=== PATIENT | female | born 1970 | race Hispanic/Latino ===

== ENCOUNTER 2023-12-17 18:18 | Observation (INO) | payer SELFPAY ==
[2023-12-17] VITALS (11 sets, daily range): BP systolic 99–118; BP diastolic 55–61; PULSE 69–90; RESP 18; TEMP 36.9; O2SAT 92–99; BMI 28.8
[2023-12-17] MEDS: ONDANSETRON 4 MG/2 ML INJ IV (18:48)
[2023-12-17 19:08] LABS: Add Manual Diff / Slide Review NO; Basophils Absolute Auto 100 /uL (0-100); Basophils Percent Auto 0.8 % (0-2); Eosinophils Absolute Auto 0 /uL (0-450); Hematocrit 36.8 % (36-46); Hemoglobin 12.4 g/dL (12.0-16.0); Lymphocytes Absolute Auto 1600 /uL (1100-4500); Lymphocytes Percent Auto 12.7 % (25-40); Mean Corpuscular HGB Conc 33.7 % (30-36); Mean Corpuscular Hemoglobin 29.6 PG (26-34); Monocytes Absolute Auto 800 /uL (0-900); Monocytes Percent Auto 6.5 % (3-14); Neutrophils Absolute Auto 9800 /uL (1500-7000); Platelet Count 376 X10^3/uL (150-400); Red Blood Cell Count 4.18 X10^6/uL (4.0-5.2); Red Cell Distribution Width 13.9 % (11.6-14.8); White Blood Cell Count 12.2 X10^3/uL (4.5-11.0)
[2023-12-17 19:19] LABS: Alanine Aminotransferase 18 IU/L (<35); Albumin 4.3 g/dL (3.5-5.0); Albumin Globulin Ratio 1.3 (1.0-2.8); Alkaline Phosphatase 89 U/L (38-126); Aspartate Aminotransferase 23 IU/L (14-36); BUN Creatinine Ratio 17.5 (6-22); Blood Urea Nitrogen 10 mg/dL (7-17); Calcium 9.1 mg/dL (8.4-10.2); Carbon Dioxide 27 mmol/L (22-32); Chloride 106 mmol/L (98-107); Estimated Glomerular Filt Rate > 60 mL/min (>60); Globulin 3.2 g/dL (1.7-4.1); Glucose 122 mg/dL (70-100); HEMOLYSIS < 15 (0-50); Lipase 72 U/L (23-300); Potassium 4.2 mmol/L (3.4-5.1); Sodium 138 mmol/L (137-145); Total Protein 7.5 g/dL (6.3-8.2)
--- NOTE | 2023-12-17 21:03 | ED_ITS ---
HPI - General Adult General Chief complaint: Abdominal Pain Stated complaint: abd pain, diarrhea, vomiting Time Seen by Provider: 12/17/23 20:39 Source: patient Mode of arrival: Ambulatory Limitations: language barrier History of Present Illness HPI narrative: Patient is a 53-year-old female who is Burundian-speaking only. The translation line was used for interpretation. She is here for evaluation of right upper quadrant/right-sided abdominal pain and vomiting and diarrhea that started last evening. Has been consistent since then. No recent travel. No recent antibiotics. No prior abdominal surgeries. After further discussion with the patient turns out she had similar symptoms 2 times in the past. The 1st time was approximately 1 month ago in the 2nd time was approximately 2 weeks ago but today symptoms have been more persistent and more painful. She has not tried anything for the symptoms prior to arrival. She has tried Protonix after 1 of her prior episodes which did not improve any of her symptoms. She states the symptoms are not worse or better with urination or bowel movements. Related Data Home Medications Medication Instructions Recorded Confirmed famotidine 40 mg tablet 40 mg PO ONCE PM PRN heartburn 12/18/23 12/18/23 pantoprazole 40 mg tablet,delayed 40 mg PO QAM 12/18/23 12/18/23 release Allergies Allergy/AdvReac Type Severity Reaction Status Date / Time No Known Drug Allergies Allergy Verified 12/17/23 18:29 Review of Systems Constitutional Constitutional: Reports system reviewed and no additional complaints, except as documented Gastrointestinal Gastrointestinal: Reports system reviewed and no additional complaints, except as documented Genitourinary Genitourinary: Reports system reviewed and no additional complaints, except as documented Musculoskeletal Musculoskeletal: Reports system reviewed and no additional complaints, except as documented Integumentary/Breasts Skin/Breast: Reports system reviewed and no additional complaints, except as documented Hematologic/Lymphatic On Anticoagulants: No Patient History Social History household members: family Smoking Status: Never smoker alcohol intake: never Smoking Status: Never smoker Substance Use Type: does not use Exam Initial Vital Signs Initial Vital Signs: Vital Signs Temperature 98.5 F 12/17/23 18:29 Pulse Rate 84 12/17/23 18:29 Respiratory Rate 18 12/17/23 18:29 Blood Pressure 118/61 12/17/23 18:29 Pulse Oximetry 96 12/17/23 18:29 Oxygen Delivery Method Room Air 12/17/23 18:29 Const General: cooperative, comfortable and No ill appearing HENMN Head: normal to inspection and normocephalic Resp Effort & Inspection: normal respiratory effort Auscultation: clear to auscultation bilaterally Cardio Rate: regular rate Rhythm: regular rhythm GI Inspection: normal to inspection and non-distended Palpation: soft, No firm, No guarding and tender Skin General: no rashes or lesions noted Neuro General: patient alert, patient awake and moves all extremities Course Orders Ordered: ED Orders 12/17/23 18:44 Complete Blood Count AUTO DIFF Stat Comprehensive Metabolic Panel Stat Lipase Stat 12/17/23 20:59 Urine Microscopic Stat 12/17/23 21:03 CT abdomen pelvis w con Stat 12/17/23 22:59 Consult to General Surgery Stat Acetaminophen (Acetaminophen 325 Mg Tablet) 650 mg PO Q6H [facility] Last Admin: 12/17/23 23:35 Dose: 650 mg Documented By: PABLO Sodium Chloride (Normal Saline 0.45%) 1,000 mls @ 100 mls/hr IV CONT JOSEFA Last Admin: 12/17/23 23:37 Dose: 100 mls/hr Documented By: PABLO Piperacillin Sod/Tazobactam (Sod 3.375 gm/ Sodium Chloride) 100 mls @ 25 mls/hr IV Q8H JOSEFA Ibuprofen (Ibuprofen 600 Mg Tablet) 600 mg PO Q6H JOSEFA Naloxone HCl (Naloxone 0.4 Mg/Ml Vial) 0.2 mg IV Q2MIN PRN PRN Reason: Opiate Reversal Ondansetron HCl (Ondansetron 4 Mg Odt) 4 mg PO NOW PRN PRN Reason: Nausea And Vomiting Ondansetron HCl (Ondansetron 4 Mg/2 Ml Inj) 4 mg IV NOW PRN PRN Reason: Nausea And Vomiting Last Admin: 12/17/23 18:48 Dose: 4 mg Documented By: BETSY Ondansetron HCl (Ondansetron 4 Mg/2 Ml Inj) 4 mg IV Q8HR PRN PRN Reason: Nausea And Vomiting Oxycodone HCl (Oxycodone Ir 5 Mg Tablet) 5 mg PO Q3H PRN PRN Reason: Pain, Moderate (4-6) Last Admin: 12/17/23 23:35 Dose: 5 mg Documented By: PABLO Oxycodone HCl (Oxycodone Ir 10 Mg Tablet) 10 mg PO Q3H PRN PRN Reason: Pain, Severe (7-10) Discontinued Medications Piperacillin Sod/Tazobactam (Sod 4.5 gm/ Sodium Chloride) 100 mls @ 200 mls/hr IV NOW ONE Stop: 12/17/23 23:00 Last Infusion: 12/18/23 00:14 Dose: Infused Documented By: Admin: 12/17/23 23:41 Dose: 200 mls/hr Documented By: PABLO Morphine Sulfate (Morphine 4 Mg/Ml Inj) 4 mg IV NOW ONE Stop: 12/17/23 21:04 Last Admin: 12/17/23 21:23 Dose: 4 mg Documented By: PABLO Morphine Sulfate (Morphine 4 Mg/Ml Inj) 4 mg IV NOW ONE Stop: 12/17/23 23:12 Last Admin: 12/17/23 23:49 Dose: 4 mg Documented By: PABLO Vital Signs Vital signs: Vital Signs - 8 hr 12/17/23 18:29 12/17/23 20:24 12/17/23 20:30 Temperature 98.5 F Pulse Rate 84 69 Respiratory Rate 18 Blood Pressure 118/61 109/57 L Pulse Oximetry 96 Oxygen Delivery Method Room Air 12/17/23 20:30 12/17/23 21:03 12/17/23 21:26 Temperature Pulse Rate 76 90 90 Respiratory Rate Blood Pressure Pulse Oximetry 99 98 98 Oxygen Delivery Method 12/17/23 21:26 12/17/23 21:30 12/17/23 22:00 Temperature Pulse Rate 85 81 Respiratory Rate Blood Pressure 108/55 L Pulse Oximetry 92 95 Oxygen Delivery Method 12/17/23 22:30 12/17/23 23:00 Temperature Pulse Rate 78 83 Respiratory Rate Blood Pressure Pulse Oximetry 97 95 Oxygen Delivery Method Medical Decision Making Lab Data Lab results reviewed: Yes I reviewed the patient's lab results. 12/17/23 18:44 12/17/23 18:44 Labs: Lab Results 12/17/23 12/17/23 Range/Units 18:44 20:59 WBC 12.2 H (4.5-11.0) X10^3/uL RBC 4.18 (4.0-5.2) X10^6/uL Hgb 12.4 (12.0-16.0) g/dL Hct 36.8 (36-46) % MCV 88.0 (80-100) fL MCH 29.6 (26-34) PG MCHC 33.7 (30-36) % RDW 13.9 (11.6-14.8) % Plt Count 376 (150-400) X10^3/uL Neut % (Auto) 80.0 H (50-75) % Lymph % (Auto) 12.7 L (25-40) % Victoria % (Auto) 6.5 (3-14) % Eos % (Auto) 0.0 L (2-4) % Baso % (Auto) 0.8 (0-2) % Neut # (Auto) 9800 H (3693-9124) /uL Lymph # (Auto) 1600 (5191-6085) /uL Victoria # (Auto) 800 (0-900) /uL Eos # (Auto) 0 (0-450) /uL Baso # (Auto) 100 (0-100) /uL Sodium 138 (137-145) mmol/L Potassium 4.2 (3.4-5.1) mmol/L Chloride 106 (98-107) mmol/L Carbon Dioxide 27 (22-32) mmol/L BUN 10 (7-17) mg/dL Creatinine 0.57 (0.52-1.04) mg/dL Estimated GFR > 60 (>60) mL/min BUN/Creatinine Ratio 17.5 (6-22) Glucose 122 H (70-100) mg/dL Calcium 9.1 (8.4-10.2) mg/dL Total Bilirubin 1.0 (0.2-1.3) mg/dL AST 23 (14-36) IU/L ALT 18 (<35) IU/L Alkaline Phosphatase 89 (38-126) U/L Total Protein 7.5 (6.3-8.2) g/dL Albumin 4.3 (3.5-5.0) g/dL Globulin 3.2 (1.7-4.1) g/dL Albumin/Globulin Ratio 1.3 (1.0-2.8) Lipase 72 (23-300) U/L Urine RBC 0-1/hpf (0-5/HPF) Urine WBC None seen (0-5/HPF) Ur Squamous Epith Cells 5-10 /hpf H (0-5/HPF) Amorphous Sediment 1+ Urine Bacteria Few (2-10) H (None) Urine Mucus 1+ H (Negative) Ur Culture Indicated? Cult not indicated Vol Urine Centrifuged 10ml (spun) Urine Dip Bedside Urine Glucose Negative Bedside Urine Bilirubin - Negative Bedside Urine Ketone - Negative Urine Specific Clifton 1.015 Bedside Urine Occult Blood +/- Bedside Urine pH 7.5 Bedside Urine Protein - Negative Bedside Urine Urobilinogen - Negative Bedside Urine Nitrite - Negative Bedside Urine Leukocytes - Negative Esterase Point of care testing: Urine Dip Bedside Urine Glucose Negative Bedside Urine Bilirubin - Negative Bedside Urine Ketone - Negative Urine Specific Clifton 1.015 Bedside Urine Occult Blood +/- Bedside Urine pH 7.5 Bedside Urine Protein - Negative Bedside Urine Urobilinogen - Negative Bedside Urine Nitrite - Negative Bedside Urine Leukocytes - Negative Esterase Imaging Data CT scan - abdomen/pelvis: Radiologist's Impression: PROCEDURE: CT ABDOMEN PELVIS W CON INDICATIONS: R sided abd pain TECHNIQUE: After the administration of intravenous contrast, axial sections acquired from the lung bases to the pubic symphysis. Coronal and sagittal reformats were performed. For radiation dose reduction, the following was used: automated exposure control, adjustment of mA and/or kV according to patient size. COMPARISON: None. FINDINGS: Image quality: Diagnostic. Lower Chest: No significant findings. ABDOMEN: Liver: No solid mass. Gallbladder: No radiopaque gallstones. Focal inflammatory fat stranding is seen adjacent to the gallbladder fundus. There is trace pericholecystic fluid. Biliary ducts: No biliary dilation. Pancreas: No ductal dilation. Spleen: Size is within normal limits. Adrenal Glands: No adrenal nodules. Kidneys and Ureters: No hydronephrosis. No solid mass. No complex renal cystic lesion which requires follow up. Stomach and Bowel: Short segment of bowel wall thickening is seen at the fat flexure. A small focus of gas in the adjacent soft tissues may a represent a diverticulum or trace free air. The majority of the colon is decompressed. No signs of small bowel obstruction. Peritoneum: Questionable focal pneumoperitoneum adjacent to the hepatic flexure versus peripheral intraluminal air. No focal fluid collection. Ventral Wall: No significant ventral hernia. Abdominal Nodes: No retroperitoneal or mesenteric adenopathy by size criteria. Vessels: Aorta and inferior vena cava are normal in size. PELVIS: Pelvic Organs: Unremarkable. Bladder: No bladder wall thickening, accounting for underdistention. Pelvic Nodes: No enlarged lymph nodes. Miscellaneous: No inguinal hernias are seen. Bones: No aggressive osseous abnormality. IMPRESSION: 1. Focal bowel wall thickening at the hepatic flexure of the colon with pericolonic fat stranding. Adjacent focus of air is suspicious for possible contained rupture versus air within an inflamed diverticulum. No focal fluid collection. No signs of bowel obstruction. 2. Pericholecystic inflammatory changes and trace pericholecystic fluid is favored to be reactive to the right upper quadrant inflammatory process rather than acute cholecystitis although clinical correlation is recommended. No radiopaque gallstones. MDM Narrative Medical decision making narrative: Labs are relatively unremarkable. CT scan does show findings in the right upper quadrant that could either be related to the gallbladder or to the colon. There was also some question about a potential perforation. This does correspond to where she was having the discomfort. His LFTs are unremarkable. I did discuss the case with Dr. Light on-call for General surgery who will admit the patient for observation. Antibiotics were administered. We will hold on any right upper quadrant ultrasound for now. Patient was informed of the findings. She expressed understanding and agreement with the plan. Discharge Plan Departure Patient Disposition: Admitted as Observation Clinical Impression: Colitis Admit Date/Time: 12/17/23 23:00 Admit Provider: Mechelle Light
[2023-12-17] MEDS: MORPHINE 4 MG/ML INJ IV ×2 (21:23→23:49)
[2023-12-17 21:25] LABS: Amorphous Sediment Urine 1+; Bacteria Urine Few (2-10); RBC Urine 0-1/HPF (0-5/HPF); Squamous Epithelial Cell Urine 5-10 /HPF (0-5/HPF); Urine Volume 10mL (spun); WBC Urine None Seen (0-5/HPF)
[2023-12-17 21:26] LABS: Culture Indicated Urine Cult Not Indicated; Mucus Urine 1+ (Negative)
[2023-12-17] MEDS: OXYCODONE IR 5 MG TABLET PO (23:35)
[2023-12-17] MEDS: ACETAMINOPHEN 325 MG TABLET 650 MG PO (23:35)
[2023-12-17] MEDS: SODIUM CHLORIDE 0.45% 1,000 ML 100 ML IV (23:37)
[2023-12-17] MEDS: PIPERACILLIN/TAZO 4.5 GM in SODIUM CHLORIDE 0.9% 100 ML IV (23:41)
[2023-12-18] VITALS (21 sets, daily range): BP systolic 77–130; BP diastolic 40–72; PULSE 57–79; RESP 12–22; TEMP 36.4–36.9; O2SAT 94–100; BMI 28.6
--- NOTE | 2023-12-18 | PATH_ITS ---
[facility] Accession Number: [id number] No. of containers..01 Tissue . 01 Material submitted: . gallbladder - GALLBLADDER AND CONTENTS . 01 Diagnosis: A. GALLBLADDER AND CONTENTS, CHOLECYSTECTOMY: Chronic cholecystitis with active inflammation within the wall, serosa, and epithelium, with surface epithelial erosion and necrosis. Cholelithiasis and cholesterolosis are also seen. Negative for dysplasia or malignancy. [facility] 12/25/2023 1002 Local . 01 Electronically signed: . Olena Brantley MD, Pathologist NPI- [id number] . 01 Gross description: . Received in formalin with two identifiers and gallbladder and contents, is a disrupted gallbladder, 9.2 x 2.6 x 2.4 cm with a full thickness defect near the fundus, 0.9 cm in diameter. The remaining external surface has thomas adherent material consistent with exudate. The cystic duct margin is inked blue, and no pericystic lymph node is identified. The area of defect is inked orange. The lumen contains red-brown mucoid bile with a yellow roughened calculus, 1.3 cm in greatest dimension. The mucosa is thomas with yellow areas of discoloration and no polyps or lesions identified. The calvillo average 0.4 cm thick. Back Tufter sections to include the cystic duct margin and full thickness sections to include area of defect are submitted in A1. ([id number]) /MRV 12/19/2023 1851 Local . 01 Pathologist provided ICD-10: K81.2 . 01 CPT . 795244 Specimen Comment: A courtesy copy of this report has been sent to [phone] Performed at: [address] [address], [place], [place] [id number] MD Joey Echevarria MD Phone: [phone]
[2023-12-18] MEDS: IBUPROFEN 600 MG TABLET PO ×3 (01:34→23:45)
--- NOTE | 2023-12-18 02:29 | PC.ADMIT ---
. Admission Note: The patient,Laverne Schwab,53 y/o, was given written information regarding hospital policies, unit procedures and contact persons. Patient's smoking status: Never smoker. Vital Signs - 8 hr 12/17/23 20:24 12/17/23 20:30 12/17/23 20:30 Pulse Rate 69 76 Blood Pressure 109/57 L Pulse Oximetry 99 Oxygen Delivery Method 12/17/23 21:03 12/17/23 21:26 12/17/23 21:26 Pulse Rate 90 90 Blood Pressure 108/55 L Pulse Oximetry 98 98 Oxygen Delivery Method 12/17/23 21:30 12/17/23 22:00 12/17/23 22:30 Pulse Rate 85 81 78 Blood Pressure Pulse Oximetry 92 95 97 Oxygen Delivery Method 12/17/23 23:00 12/17/23 23:30 12/17/23 23:35 Pulse Rate 83 85 Blood Pressure 99/59 L Pulse Oximetry 95 95 Oxygen Delivery Method 12/17/23 23:35 12/18/23 00:00 12/18/23 01:30 Pulse Rate 77 79 Blood Pressure Pulse Oximetry 95 96 Oxygen Delivery Method Room Air Patient admitted at 0050 per stretcher from ER and walked from doorway to bed with 1 assist but weakness and having abdominal pain/discomfort. She is Montserratian speaking only and understands little Fijian so assessments done via executive wellness programs director. Is alert and oriented. Breath sounds CTA with RA sat of 97%. HRR. Denies nausea at present time but did have nausea prior to arrival in ER. BT present more in left than right and abdomen is soft although tender throughout with upper quads being more tender with minimal palpation. Did report some burning with urination but no frequency, urgency or incontinence. Is able to move self in bed. Bilateral calf SCD's applied. Fall risk score is moderate but verbalizes understanding that she call for assistance when needing to get up to use the bathroom. Oriented to call light and bed controls.
--- NOTE | 2023-12-18 05:41 | DI.US.S_ITS ---
PROCEDURE: US ABDOMEN LIMITED INDICATIONS: RUQ PAIN TECHNIQUE: Real-time scanning was performed of the abdominal and retroperitoneal organs, with image documentation. COMPARISON: None. FINDINGS: Liver: Liver is normal in size and homogeneous in echotexture. Gallbladder: 1.4 centimeter non mobile stone in the gallbladder neck. Gallbladder wall is thickened to 4.2 millimeters. No pericholecystic edema. Negative sonographic Campos's sign. Biliary ducts: Intrahepatic bile ducts are non-dilated. Extrahepatic bile duct caliber measures 6.3 mm. Normal is 6-7 mm or less in diameter, or 10 mm or less post-cholecystectomy. Pancreas: Visualized portions of the pancreas are sonographically normal. Miscellaneous: No free abdominal fluid. IMPRESSION: Cholelithiasis with gallbladder wall thickening concerning for acute cholecystitis. Dictated by: Clarissa Elizabeth MD, PhD on 12/18/2023 at 9:38 Approved by: Clarissa Elizabeth MD, PhD on 12/18/2023 at 9:40
[2023-12-18] MEDS: ACETAMINOPHEN 325 MG TABLET 650 MG PO ×2 (05:46→23:45)
[2023-12-18 06:02] LABS: Add Manual Diff / Slide Review NO; Basophils Absolute Auto 100 /uL (0-100); Basophils Percent Auto 0.9 % (0-2); Eosinophils Absolute Auto 100 /uL (0-450); Eosinophils Percent Auto 0.7 % (2-4); Hematocrit 32.8 % (36-46); Hemoglobin 11.1 g/dL (12.0-16.0); Lymphocytes Absolute Auto 1900 /uL (1100-4500); Lymphocytes Percent Auto 23.5 % (25-40); Mean Corpuscular HGB Conc 33.7 % (30-36); Mean Corpuscular Volume 89.1 fL (80-100); Monocytes Absolute Auto 800 /uL (0-900); Monocytes Percent Auto 10.2 % (3-14); Neutrophils Absolute Auto 5100 /uL (1500-7000); Neutrophils Percent Auto 64.7 % (50-75); Platelet Count 323 X10^3/uL (150-400); Red Blood Cell Count 3.69 X10^6/uL (4.0-5.2); Red Cell Distribution Width 13.7 % (11.6-14.8); White Blood Cell Count 7.9 X10^3/uL (4.5-11.0)
[2023-12-18 06:26] LABS: Alanine Aminotransferase 39 IU/L (<35); Albumin 3.5 g/dL (3.5-5.0); Albumin Globulin Ratio 1.3 (1.0-2.8); Alkaline Phosphatase 79 U/L (38-126); Aspartate Aminotransferase 58 IU/L (14-36); BUN Creatinine Ratio 17.7 (6-22); Bilirubin Total 1.8 mg/dL (0.2-1.3); Blood Urea Nitrogen 11 mg/dL (7-17); Calcium 8.3 mg/dL (8.4-10.2); Carbon Dioxide 26 mmol/L (22-32); Chloride 106 mmol/L (98-107); Estimated Glomerular Filt Rate > 60 mL/min (>60); Globulin 2.7 g/dL (1.7-4.1); Glucose 107 mg/dL (70-100); HEMOLYSIS < 15 (0-50); Potassium 3.7 mmol/L (3.4-5.1); Sodium 135 mmol/L (137-145); Total Protein 6.2 g/dL (6.3-8.2)
[2023-12-18] MEDS: PIPERACILLIN/TAZO 3.375 GM in SODIUM CHLORIDE 0.9% 100 ML IV (08:29)
[2023-12-18] MEDS: GABAPENTIN 300 MG CAPSULE PO (11:13)
[2023-12-18] MEDS: SCOPOLAMINE 1 PATCH TOP (11:14)
--- NOTE | 2023-12-18 12:53 | CM.DANOTE ---
Initial DCP Assessment Visit Note Reviewed EMR and team rounds for pt's medical status and anticipated d/c needs. Went to the room to meet with pt, however she was found to be sleeping at the time of this visit. 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 She is , and has a support system of coworkers/spouse for home recovery needs. Pt is Macedonian speaking only. Payor: No insurance PCP: None Pt is a 53 year-old F who presented to the ED with c/o right-sided lower abdominal pain, nausea, and vomiting that had been recurrent for several days, this time the acuity of the pain remained constant. CT imaging suggested pericholecystic inflammary changes, which they felt was either colon or gallbladder infectious process present. She was started on IV ABO's, and placed in OBS for further monitoring/tx. Today, the decision was made to take her to surgery for a cholecystectomy at 2:00pm. DCP will continue to follow and meet with pt tomorrow to discuss plan for d/c and transport back home. Discharge Planning/Care Management CM Discharge Assessment Start: 12/18/23 12:51 Freq: Status: Active Protocol: Document 12/18/23 12:51 DPL (Rec: 12/18/23 12:53 DPL [id number]) Discharge Planning Assessment Assigned Mill Manager DEVANTE Howard Advance Directives? No History Provided By Medical Record Expected Length of Stay 2 Has Patient been admitted in last 30 No days? Prior Living Arrangements Mobile home Household Members family Type of transporation used prior to Relies on Others admit Independent with ADL's Yes Is patient alert and oriented? Yes Comment N/A Caregiver for Another No Comment No anticpated home d/c needs identified at this time. Barriers to Discharge No Discharge Plan Home Transportation Arrangement Family Referrals Initiated None needed Review Status In Process Please Provide Date Initial DC 12/18/23 Assessment Was Performed
[2023-12-18] MEDS: SODIUM CHLORIDE 0.45% 1,000 ML 100 ML IV ×2 (12:54→18:19)
--- NOTE | 2023-12-18 13:28 | DIET.CONS ---
Dietary Consultation Note Admission Date: 12/17/2023 23:00 Assessment: 53 y F admitted for abd pain/V/D. Cholecystectomy today. The translation line was used for interpretation. Nutrition consulted for 6 kg (13 lb) weight loss. Met with pt at bedside. Reports was only eating an apple and vegetables for last 22 d as that was all she could tolerated w/ GI symptoms. Additionally notes a doctor told her that her uric acid was high and to avoid meats/poultry about 1 m ago. Nutrition focused physical exam performed: Mild muscle loss temporalis. No other significant results. Areas assessed: temporalis, buccal/orbital fat pads, triceps, clavicle and scapular region, interosseous. Ht: 154 cm Wt: 68 kg BMI: 28.6 UBW: 74 kg (-8% in 22 days, severe) Last BM: 12/17/23 (12/18/23 00:51) MNA: 9 Sotero Score: 20 Diet: 12/18/23 09:51 NPO Diet Diet Modifications: NPO Type: NPO except for Meds Nutrition Percent Meal Consumed 100% 12/18/23 08:00 Labs: RBC 3.69 X10^6/uL (4.0-5.2) L 12/18/23 05:51 Hgb 11.1 g/dL (12.0-16.0) L 12/18/23 05:51 Hct 32.8 % (36-46) L 12/18/23 05:51 Creatinine 0.62 mg/dL (0.52-1.04) 12/18/23 05:51 Nutrition Diagnosis: Severe Acute Protein Calorie Malnutrition r/t decreased ability to consume sufficient energy protein intake in setting of symptoms of abd pain/V/D as evidenced by 8% weight loss in 22 days, severe, <50% of estimated protein-energy requirements for 22 days per diet recall, severe, and mild muscle loss, temporalis The patient is at much higher risk for medical and surgical complications because of their malnutrition. This increases the difficulty and complexity of medical and surgical interventions and increases the chances of poor outcomes such as morbidity and mortality. Interventions: 1. Follow for diet advancement 2. Will f/u after surgery to provide educ regarding uric acid/protein EER: [id number] kcals (22-25 kcals/kg per BMI) 80-95 g protein (1.25-1.5 g/kg, malnutrition) Monitoring/Evaluations: diet advancement, f/u in 1 day Electronically Signed by: Emma Mercer 12/18/23 13:28 Clinical Dietitian [address] [address]
--- NOTE | 2023-12-18 14:09 | PM.HP.1 ---
History of Present Illness History of Present Illness Date Patient Seen: 12/18/23 Time Patient Seen: 14:09 Chief complaint: abd pain, diarrhea, vomiting Narrative: RUQ pain for 2 days, anorexia and emesis. CT scan and US confirm acute cholecystitis. 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 Minimal Albanian. [facility] Social History household members: family Smoking Status: Never smoker alcohol intake: never Meds Home Medications and Allergies Home Medications Medication Instructions Recorded Confirmed Type famotidine 40 mg tablet 40 mg PO ONCE PM PRN heartburn 12/18/23 12/18/23 History pantoprazole 40 mg tablet,delayed 40 mg PO QAM 12/18/23 12/18/23 History release Allergies Allergy/AdvReac Type Severity Reaction Status Date / Time No Known Drug Allergies Allergy Verified 12/17/23 18:29 Review of Systems Review of Systems ROS: Yes All systems reviewed with the patient and are negative except as otherwise documented Exam Vital Signs (past 8 hours): - 12/18/23 08:00 12/18/23 12:00 Temperature 97.8 F 98.5 F Pulse Rate 57 L 60 Respiratory Rate 14 16 Blood Pressure 85/46 L 95/55 L Pulse Oximetry 96 100 Oxygen Flow Rate 0 0 Oxygen Delivery Method Room Air Oxygen Flow Rate 0 Const General: cooperative and healthy appearing Nutritional Appearance: average body habitus HENMT Head: normocephalic and atraumatic Eyes General: appearance normal, both eyes and all related structures Sclera: sclerae normal Neck Neck: trachea midline and No JVD Resp Effort & Inspection: normal respiratory effort and able to speak in complete sentences Cardio Rate: regular rate Rhythm: regular rhythm GI Inspection: normal to inspection Palpation: soft and tender (RUQ) Skin General: turgor normal and No atrophy Neuro General: patient alert, patient awake, patient oriented x3 and moves all extremities Cognition: normal cognition Psych Appearance: grossly normal Mental Status: mental status grossly normal Attitude: cooperative Judgment: judgment good Objective Labs 12/18/23 05:51 12/18/23 05:51 Labs: Laboratory Results - last 24 hr 12/17/23 12/17/23 12/18/23 18:44 20:59 05:51 WBC 12.2 H 7.9 RBC 4.18 3.69 L Hgb 12.4 11.1 L Hct 36.8 32.8 L MCV 88.0 89.1 MCH 29.6 30.0 MCHC 33.7 33.7 RDW 13.9 13.7 Plt Count 376 323 Neut % (Auto) 80.0 H 64.7 Lymph % (Auto) 12.7 L 23.5 L [place] % (Auto) 6.5 10.2 Eos % (Auto) 0.0 L 0.7 L Baso % (Auto) 0.8 0.9 Neut # (Auto) 9800 H 5100 Lymph # (Auto) 1600 1900 [place] # (Auto) 800 800 Eos # (Auto) 0 100 Baso # (Auto) 100 100 Sodium 138 135 L Potassium 4.2 3.7 Chloride 106 106 Carbon Dioxide 27 26 BUN 10 11 Creatinine 0.57 0.62 Estimated GFR > 60 > 60 BUN/Creatinine Ratio 17.5 17.7 Glucose 122 H 107 H Calcium 9.1 8.3 L Total Bilirubin 1.0 1.8 H AST 23 58 H ALT 18 39 H Alkaline Phosphatase 89 79 Total Protein 7.5 6.2 L Albumin 4.3 3.5 Globulin 3.2 2.7 Albumin/Globulin Ratio 1.3 1.3 Lipase 72 Urine RBC 0-1/hpf Urine WBC None seen Ur Squamous Epith Cells 5-10 /hpf H Amorphous Sediment 1+ Urine Bacteria Few (2-10) H Urine Mucus 1+ H Ur Culture Indicated? Cult not indicated Vol Urine Centrifuged 10ml (spun) Assessment & Plan Assessment & Plan narrative: Acute cholecystitis Plan: Jazmín evelin Time Spent With Patient Time with patient: less than 30 minutes
[2023-12-18] MEDS: LACTATED RINGERS 1,000 ML 42 ML IV ×2 (14:55→16:47)
--- NOTE | 2023-12-18 15:11 | SUR.OPER ---
Supine on padded OR bed, head on pillow, safety belt at thigh, left arm padded and tucked at side. Right arm secured on padded arm board <90 degrees abduction. Legs uncrossed. Tape over blanket to secure lower legs.
[2023-12-18] MEDS: BUPIVACAINE 0.5% (PF) 30 ML, EPINEPHrine 0.15 MG INJ (15:50)
[2023-12-18] MEDS: OXYCODONE IR 5 MG TABLET PO (20:50)
[2023-12-19 00:37] VITALS: BP 106/56; PULSE 86; RESP 16; TEMP 37.3; O2SAT 95
[2023-12-19 04:05] VITALS: BP 103/56; PULSE 55; RESP 16; TEMP 37.2; O2SAT 97
[2023-12-19] MEDS: ACETAMINOPHEN 325 MG TABLET 650 MG PO ×2 (05:46→12:13)
[2023-12-19] MEDS: IBUPROFEN 600 MG TABLET PO (05:48)
[2023-12-19] MEDS: SODIUM CHLORIDE 0.45% 1,000 ML 100 ML IV (05:49)
[2023-12-19 05:55] LABS: Add Manual Diff / Slide Review NO; Basophils Absolute Auto 0 /uL (0-100); Basophils Percent Auto 0.2 % (0-2); Eosinophils Absolute Auto 0 /uL (0-450); Hematocrit 31.7 % (36-46); Hemoglobin 10.7 g/dL (12.0-16.0); Lymphocytes Absolute Auto 700 /uL (1100-4500); Lymphocytes Percent Auto 6.6 % (25-40); Mean Corpuscular HGB Conc 33.7 % (30-36); Mean Corpuscular Hemoglobin 30.1 PG (26-34); Mean Corpuscular Volume 89.3 fL (80-100); Monocytes Absolute Auto 500 /uL (0-900); Monocytes Percent Auto 4.9 % (3-14); Neutrophils Absolute Auto 9300 /uL (1500-7000); Neutrophils Percent Auto 88.3 % (50-75); Platelet Count 301 X10^3/uL (150-400); Red Blood Cell Count 3.55 X10^6/uL (4.0-5.2); Red Cell Distribution Width 13.9 % (11.6-14.8); White Blood Cell Count 10.5 X10^3/uL (4.5-11.0)
[2023-12-19 06:11] LABS: Alanine Aminotransferase 59 IU/L (<35); Albumin 3.2 g/dL (3.5-5.0); Albumin Globulin Ratio 1.2 (1.0-2.8); Alkaline Phosphatase 105 U/L (38-126); Aspartate Aminotransferase 65 IU/L (14-36); BUN Creatinine Ratio 11.9 (6-22); Bilirubin Total 0.9 mg/dL (0.2-1.3); Blood Urea Nitrogen 7 mg/dL (7-17); Calcium 8.3 mg/dL (8.4-10.2); Carbon Dioxide 24 mmol/L (22-32); Chloride 107 mmol/L (98-107); Estimated Glomerular Filt Rate > 60 mL/min (>60); Globulin 2.7 g/dL (1.7-4.1); Glucose 111 mg/dL (70-100); HEMOLYSIS < 15 (0-50); Sodium 136 mmol/L (137-145); Total Protein 5.9 g/dL (6.3-8.2)
[2023-12-19 08:00] VITALS: BP 98/61; PULSE 63; RESP 16; TEMP 36.2; O2SAT 99
[2023-12-19] MEDS: OXYCODONE IR 5 MG TABLET PO ×2 (09:33→14:28)
--- NOTE | 2023-12-19 10:38 | DIET.CONS2 ---
Dietary Inpatient Consultation Note Admission Date: 12/17/2023 23:00 Nutrition f/u. Pt reports avoiding foods associated with uric acid production d/t previous doctor saying she has inflammation around appendix and intestine. Foods she's been intentionally avoiding d/t this include high fat dairy foods, sugar sweetened beverages, and pork. Reviewed protein sources and balanced meals per pt questions. Addressed questions around foods and uric acid. Encouraged adequate protein and energy intake as tolerated w/ recovery. Will monitor po intakes and f/u prn. Diet: 12/19/23 Breakfast General (Regular) Diet Diet Modifications: Food Texture: Level 7 - Regular Liquid Consistency: Level 0 - Thin Nutrition Percent Meal Consumed 50% 12/19/23 09:00 Percent Meal Consumed 0% 12/18/23 18:00 Percent Meal Consumed 100% 12/18/23 08:00 Electronically Signed by: Emma Mercer 12/19/23 10:38 Clinical Dietitian [address] [id number]
[2023-12-19 11:00] VITALS: BP 113/53; PULSE 60; RESP 16; TEMP 36.4; O2SAT 98
--- NOTE | 2023-12-19 14:31 | CM.DPC ---
DCP Cont. Reviewed EMR and team rounds for status updates. Pt has been medically cleared for home d/c. Dr. Roman called in her pain meds to [facility]'s pharmacy, this MUSIC STORE MANAGER provided pt with a taxi voucher that paid extra in order for [place] to stop by [facility]'s so pt can get her meds, then will drop her off at the ferr. She states that she has a friend who will pick her up on the other side. No further DCP needs identified at this time.
--- NOTE | 2023-12-19 15:06 | PC.NURSE ---
Dayshift: All patient belongings returned including valuables in safe and patient home medications. Pt confirmed that all items were present. Pt educated with lang interpreter re: post surgical care and medications. All questions answered. IV d/c'ed. Dressing changed on two right most drain sites due to sanguinous drainage (okay'ed by MD Roman). Pt escorted to taxi via wheelchair by [facility]. Pt sister in law plans to pick her up in [place] from [facility].
--- NOTE | 2024-01-03 15:12 | P.OP_ITS ---
Operative Date/Time/Diagnoses Date of procedure: 12/18/23 Pre-op diagnosis: Acute cholecystitis Post-op diagnosis: same Procedure & Clinicians Procedure: Laparoscopic cholecystectomy Same procedure as scheduled: Yes Indications: Gangrenous cholecystitis Surgeon: Mechelle Light Click Yes if Unassisted: Yes Anesthesia Type: General and Local Operative Notes Findings: Gangrenous cholecystitis. There was bilious fluid in the abdomen consistent with a pre surgery perforation of the gallbladder. No evidence of colonic involvement Closure Type: primary Specimen(s): other (Gallbladder) Applied: other (Surgicel x2) Estimated Blood Loss (mL): 150 Procedure in detail: Preop diagnosis: Acute cholecystitis Postop diagnosis: Gangrenous cholecystitis Operative procedure: Laparoscopic cholecystectomy Surgeon: Betzy Light MD Anesthetic: General with ET tube intubation along with local Findings: Gangrenous gallbladder, more than average bleeding requiring use of Surgicel at the end. Procedure: Patient placed in a supine position. Prepped and draped in sterile fashion to expose her abdomen. Infraumbilical port site was placed using open technique a 12 mm port. Insufflation began all other ports were placed under direct vision including a 10 mm port in the midepigastrium and 2 5 mm ports in the right lateral abdomen. Gallbladder was decompressed then grasped and pushed cephalad for exposure. Cystic duct was identified clipped once distally once p roximally and transected. Cystic artery was identified clipped once distally once proximally and transected. Gallbladder was removed in the fossa bed with electrocautery and blunt dissection. Bleeding came from predominantly the liver bed, but there was good hemostasis at the end of the procedure. Gallbladder was then placed into an Endo-Catch bag and pulled through the infraumbilical port site intact. The right upper quadrant was irrigated to a clear return. Surgicel was placed into the fossa bed. I then removed all drains and began closure. Closure consisted of interrupted 0 Vicryl for fascial closure of the infraumbilical port site. Skin was closed with a running 4-0 Vicryl. Steri- Strips and sterile dressings were placed. Patient was awakened, extubated, taken to recovery room in stable condition. Needle, instrument, sponge counts were correct. Blood loss: 150 mL Specimen: Gallbladder Complications: none Post-operative Condition: stable Disposition: PACU
== END 2023-12-19 14:45 | disposition home or self-care (01) ==
LOC: ED 23:00 → AC 23:01
PROVIDERS: Admitting Provider Surgery; Emergency Provider Emergency Medicine; Referring Provider Emergency Medicine; Visit Provider Surgery
PROC: 0FT44ZZ Resection of Gallbladder, Percutaneous Endoscopic Approach (ICD-10-PCS; CPT 47562; principal; 2023-12-18 14:45)
DX: K80.00 Calculus of gallbladder with acute cholecystitis without obstruction (principal); K82.A1 Gangrene of gallbladder in cholecystitis
CPT/HCPCS: 47562; 36415; 74177; 76705; 80053; 81003; 81015; 83690; 85025; 96365; 96375; 96376; 99221; 99284; G0378; J0171; J0330; J1100; J1170; J2250; J2270; J2405; J2543; J2704; J3010; J3490; J7050; Q9967

== ENCOUNTER 2023-12-21 01:16 | Inpatient (IN) | payer SELFPAY ==
[2023-12-18 00:51] VITALS: BMI 28.6
[2023-12-21] VITALS (12 sets, daily range): BP systolic 99–116; BP diastolic 53–72; PULSE 93–113; RESP 17–26; TEMP 36.1–38.6; O2SAT 90–99; BMI 29.0
[2023-12-21] MEDS: SODIUM CHLORIDE 0.9% 1,000 ML 100 ML IV ×2 (02:56→11:46)
[2023-12-21] MEDS: HYDROMORPHONE 0.5 MG INJ IV (03:30)
[2023-12-21] MEDS: OXYCODONE IR 5 MG TABLET PO ×2 (05:59→12:21)
[2023-12-21] MEDS: ONDANSETRON 4 MG/2 ML INJ IV (05:59)
--- NOTE | 2023-12-21 06:58 | PC.NURSE ---
Pt had a lap evelin here on 12/17, discharged 12/18 to friends at [place] via Taxi/ferry. 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 Pt is here on a 7 month work visa, and is Bolivian speaking only. She states that she does not have family here, does not have insurance, and would not have been able to pay for the meds anyway. Pt reports increasing pain yesterday (12/19), worse than before surgery. She went to [facility] in [place], and CT shows capsulated fluid/gas filled area at surgical site (see [facility] medical record in chart) Arrived by [facility] at 0245, having received 3.75 mg Zosyn and 0.5 mg Dilaudid IV 2x on transport at [phone].
--- NOTE | 2023-12-21 09:08 | P.HP_ITS ---
History of Present Illness History of Present Illness Date Patient Seen: 12/21/23 Time Patient Seen: 09:27 Chief complaint: post surgical abscess Narrative: Laverne Amador is Albanian-speaking only a 53-year-old woman who underwent a laparoscopic cholecystectomy 12/17. Apparently gallbladder was gangrenous, operative note not currently available.. She is Albanian-speaking only. She presented to [facility] 12/19 with severe abdominal pain laboratory studies significant for WBC 13, total bilirubin normal, mild transaminitis. CT abdomen pelvis demonstrates a 6 cm fluid collection/abscess in the gallbladder fossa. Imaging report is available at this time, the images are not yet available for my review. [facility] Surgical History History of cholecystectomy Social History household members: family and friend(s) Smoking Status: Never smoker alcohol intake: never Meds Home Medications and Allergies Home Medications Medication Instructions Recorded Confirmed Type famotidine 40 mg tablet 40 mg PO ONCE PM PRN heartburn 12/18/23 12/18/23 History pantoprazole 40 mg tablet,delayed 40 mg PO QAM 12/18/23 12/18/23 History release hydrocodone 5 mg-acetaminophen 325 1 tab PO Q8H PRN pain #10 tabs 12/19/23 Rx mg tablet Allergies Allergy/AdvReac Type Severity Reaction Status Date / Time No Known Drug Allergies Allergy Verified 12/17/23 18:29 Exam Vital Signs (past 8 hours): - 12/21/23 02:34 12/21/23 08:33 Temperature 97.9 F Pulse Rate 97 H Respiratory Rate 17 Blood Pressure 108/65 Pulse Oximetry 96 Oxygen Delivery Method Nasal Cannula Oxygen Flow Rate 0 Oxygen Delivery Method Nasal Cannula Oxygen Flow Rate 0 Narrative Exam Narrative: General adult woman alert oriented Chest nonlabored respiration Abdomen right upper quadrant pain with palpation laparoscopic port incisions clean dry intact. Extremities warm well perfused Assessment & Plan Assessment and plan (1) Postoperative intra-abdominal abscess: Status: Acute Assessment & Plan narrative: 53-year-old woman 3 days status post laparoscopic cholecystectomy for a gangrenous gallbladder who returns with a abscess of the gallbladder fossa. Images not yet available for my review however based on report there is a 6 cm abscess. Plan is for diagnostic laparoscopy with drainage of intra-abdominal abscess.. -NPO -Zosyn -SCDs and Lovenox
[2023-12-21] MEDS: PIPERACILLIN/TAZO 3.375 GM in SODIUM CHLORIDE 0.9% 100 ML IV ×2 (10:09→18:40)
--- NOTE | 2023-12-21 10:41 | DIET.CONS ---
Dietary Consultation Note Admission Date: 12/21/2023 01:16 Assessment: 53 y F re-admitted after lap cholecystectomy on 12/17 with postop intra-abdominal abscess. Nutrition screened for low MNA. Dietary consult with full assessment provided on 12/17. Ht: 154 cm Wt: 69 kg BMI: 29.0 UBW: 74 kg per pt report 1 m ago (-8% weight loss in 1 month) Last BM: 12/15/23 (12/21/23 02:34) MNA: 7 Sotero Score: 19 Diet: 12/21/23 02:45 NPO Diet Diet Modifications: NPO Type: Strict Nutrition Diagnosis: Severe Acute Protein Calorie Malnutrition r/t decreased ability to consume sufficient energy protein intake in setting of symptoms of abd pain/V/D as evidenced by 8% weight loss within 1 month, severe, <50% of estimated protein-energy requirements for 22 days per diet recall, severe, and mild muscle loss, temporalis The patient is at much higher risk for medical and surgical complications because of their malnutrition. This increases the difficulty and complexity of medical and surgical interventions and increases the chances of poor outcomes such as morbidity and mortality. Interventions: 1. Follow for diet advancement, ONS BID when diet advances EER: 6273-3995 kcals (22-25 kcals/kg per BMI) 80-95 g protein (1.25-1.5 g/kg, malnutrition) Monitoring/Evaluations: diet advancement, po intakes Electronically Signed by: Emma Mercer 12/21/23 10:41 [address] [address]
--- NOTE | 2023-12-21 15:51 | PC.NURSE ---
Day shift: Off unit for procedure at approx 1545.
[2023-12-21] MEDS: LACTATED RINGERS 1,000 ML 42 ML IV (16:10)
--- NOTE | 2023-12-21 16:24 | CM.DANOTE ---
DCP Assessment Note: Pt is a 53yo female, resident of [place] on [facility], is here due to severe abdominal pain, she was admitted to obtain a diagnostic laparoscopy with drainage of intra abdominal abscess. Pt lives in a mobile home with family members. Pt's only language spoken is Yi. Pt does not have a Primary Care Provider established or insurance. 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 Reviewed chart and team rounds for pt's medical status and initial discharge needs. DCP could not meet with pt due to triaging needs and pt went to surgery. DCP called pt's contact on file, Do Keyes who is listed as her sister, spoke with [id number], [place]. Pt's [id number] confirmed pt's living situation with them in a mobile home and how she relies on others for transport. It is requested that pt have assistance with transport to the [facility] again and family will meet her at terminal on [facility]. A factor that may have attributed to pt's readmission was her not being able to obtain medications from [facility] in [place] due to language barrier and no funds. Pt's family requested that any prescriptions be sent to the [facility] (Address: [facility] , [place] [address]; # [phone]) so they can coordinate picking up and paying for any medications necessary. Plan: Plan of care evolving, anticipating pt to discharge with taxi voucher to [facility] to meet family. CM team will plan to follow clinical course closely for assessment of need and coordination of discharge plan. EUGENE French Discharge Planning/Care Management CM Discharge Assessment Start: 12/21/23 16:19 Freq: Status: Active Protocol: Document 12/21/23 16:19 MW (Rec: 12/21/23 16:23 MW [id number]) Discharge Planning Assessment Assigned Hospice Nurse Practitioner DEVANTE DorseyOA/Assigned Designee Name Sister Lei Contact Information [phone] Advance Directives? No History Provided By Medical Record Has Patient been admitted in last 30 Yes days? Comment Pt was admitted on 12/17/23- for a lap evelin. Pt was discharged home. Prior Living Arrangements Mobile home Household Members family Type of transporation used prior to Relies on Others admit Independent with ADL's Yes Is patient alert and oriented? Yes Caregiver for Another No Discharge Plan Home Referrals Initiated None needed Whiteboard Updated in Patient Room with Yes name and ext. # of Hospice Nurse Practitioner Comment [phone] Please Provide Date Initial DC 12/21/23 Assessment Was Performed Next Review Type Continued Stay Review
--- NOTE | 2023-12-21 16:29 | SUR.OPER ---
Supine on padded OR bed, head on pillow, safety belt at thigh, left arm padded and tucked at side. Right arm secured on padded arm board <90 degrees abduction. Legs uncrossed. Padded footboard in place. Tape over blanket to secure lower legs.
--- NOTE | 2023-12-21 17:54 | P.OP_ITS ---
Operative Date/Time/Diagnoses Date of procedure: 12/21/23 Time of procedure: 17:55 Pre-op diagnosis: Intra-abdominal abscess Post-op diagnosis: same Procedure & Clinicians Procedure: Diagnostic laparoscopy Drainage of intra-abdominal abscess Same procedure as scheduled: Yes Indications: 53-year-old woman who underwent a laparoscopic cholecystectomy 3 days ago for a necrotic gallbladder. She returned with severe abdominal pain fever and CT demonstrating a 6 cm fluid collection in the gallbladder fossa. Surgeon: Killian Mariscal Click Yes if Unassisted: Yes Anesthesia Type: General Operative Notes Findings: Early organizing abscess gallbladder fossa Specimen(s): other (Abdominal abscess) Estimated Blood Loss (mL): 10 Procedure in detail: Patient was brought to the operating room placed supine on the table. Bilateral lower extremity compression devices were applied. She received Zosyn prior to skin incision. General anesthesia was induced. She was then prepped and draped in sterile fashion a time-out was performed. The infraumbilical incision was reopened and a balloon trocar was placed in the abdomen pneumoperitoneum was established. General inspection of the abdomen was made. Omentum was plastered to the right upper quadrant and there was murky bile stained fluid within the a bdomen. Additional 5 mm ports were placed through the previous skin incisions. The right upper quadrant was explored and we encountered an early organizing abscess in the gallbladder fossa. The fluid was sent as intra-abdominal abscess the wall debrided. The abdomen was then copiously lavaged with saline until it returned clear. A 19 Citizen Of [place] drain was placed through the right upper quadrant to lay within the gallbladder fossa. The patient emerged from anesthesia was extubated and transferred to recovery in stable condition. Complications: none Post-operative Condition: stable Disposition: Acute Care
--- NOTE | 2023-12-21 18:46 | PC.NURSE ---
Day shift: Back in room from PACu at approx 1830. A&Ox4. No complaints. VS ok. Ra 89%. Placed on 1L NC and now 96%. Pt sleeping. Call light in reach. Bed alarm is on. MANJEET drain to suction. 3 lap sites CDI. Purwik replaced and to wall suction. IV infusing per SEP.
[2023-12-21] MEDS: CELECOXIB 200 MG CAPSULE PO (21:03)
[2023-12-22] MEDS: PIPERACILLIN/TAZO 3.375 GM in SODIUM CHLORIDE 0.9% 100 ML IV ×3 (03:00→18:05)
[2023-12-22] MEDS: OXYCODONE IR 5 MG TABLET PO ×5 (03:45→21:13)
[2023-12-22] MEDS: ACETAMINOPHEN 325 MG TABLET 650 MG PO ×2 (07:55→15:50)
[2023-12-22] MEDS: CELECOXIB 200 MG CAPSULE PO ×2 (08:00→21:06)
[2023-12-22] MEDS: SODIUM CHLORIDE 0.9% 1,000 ML 100 ML IV ×2 (10:55→21:14)
[2023-12-22] MEDS: HYDROMORPHONE 0.5 MG INJ IV (11:05)
[2023-12-22] MEDS: ENOXAPARIN 40 MG/0.4 ML SYRINGE SUBCUT (11:35)
--- NOTE | 2023-12-22 16:00 | PC.NURSE ---
Computer downtime 12/21/23 at 1900 to 12/22/23 1600. See paper documentation during this time.
[2023-12-22 19:03] LABS: Add Manual Diff / Slide Review NO; Basophils Absolute Auto 0 /uL (0-100); Eosinophils Absolute Auto 0 /uL (0-450); Hematocrit 26.4 % (36-46); Hemoglobin 8.6 g/dL (12.0-16.0); Lymphocytes Absolute Auto 300 /uL (1100-4500); Lymphocytes Percent Auto 3.1 % (25-40); Mean Corpuscular HGB Conc 32.8 % (30-36); Mean Corpuscular Hemoglobin 29.4 PG (26-34); Mean Corpuscular Volume 89.7 fL (80-100); Monocytes Absolute Auto 600 /uL (0-900); Monocytes Percent Auto 5.7 % (3-14); Neutrophils Absolute Auto 10100 /uL (1500-7000); Neutrophils Percent Auto 91.2 % (50-75); Platelet Count 235 X10^3/uL (150-400); Red Blood Cell Count 2.94 X10^6/uL (4.0-5.2); Red Cell Distribution Width 13.8 % (11.6-14.8)
[2023-12-22 19:04] LABS: Alanine Aminotransferase 57 IU/L (<35); Albumin 2.7 g/dL (3.5-5.0); Alkaline Phosphatase 111 U/L (38-126); Aspartate Aminotransferase 42 IU/L (14-36); BUN Creatinine Ratio 18.5 (6-22); Bilirubin Total 0.9 mg/dL (0.2-1.3); Blood Urea Nitrogen 10 mg/dL (7-17); Calcium 8.1 mg/dL (8.4-10.2); Carbon Dioxide 26 mmol/L (22-32); Chloride 111 mmol/L (98-107); Estimated Glomerular Filt Rate > 60 mL/min (>60); Globulin 2.7 g/dL (1.7-4.1); Glucose 126 mg/dL (70-100); HEMOLYSIS < 15 (0-50); Potassium 3.7 mmol/L (3.4-5.1); Sodium 139 mmol/L (137-145); Total Protein 5.4 g/dL (6.3-8.2)
[2023-12-22 20:46] VITALS: BP 102/54; PULSE 79; RESP 16; TEMP 36.8; O2SAT 94
[2023-12-22] MEDS: PANTOPRAZOLE DR 40 MG TABLET PO (21:06)
[2023-12-22 23:29] VITALS: BP 97/55; PULSE 74; RESP 15; TEMP 35.9; O2SAT 96
--- NOTE | 2023-12-23 00:26 | PC.NURSE ---
Patient is alert and oriented but Burkinan speaking only so disassembler used. Has shallow respirations and diminished breath sounds but CTA; remains on oxygen at 1L/min with sat in mid 90's but desats to 80's on RA when asleep. HRR and BP soft in low 100's. Denied nausea. BT present and states she has passed flatus. Abdominal pain described as mild but rated severity as 4/10 so medicated with oxycodone. Voiding without dysuria. Is getting out of bed with 1 assist and did use walker tonight to get [place] to [facility]. Allevyn type dressings to abdominal lap sites are CDI. MANJEET is intact and compressed with serosanguinous drainage noted in bulb. Is able to turn herself in bed. Fall risk score is moderate and bed alarm is activated.
[2023-12-23] MEDS: PIPERACILLIN/TAZO 3.375 GM in SODIUM CHLORIDE 0.9% 100 ML IV ×3 (03:10→18:34)
[2023-12-23 06:22] LABS: Add Manual Diff / Slide Review NO; Basophils Absolute Auto 0 /uL (0-100); Basophils Percent Auto 0.1 % (0-2); Eosinophils Absolute Auto 0 /uL (0-450); Eosinophils Percent Auto 0.2 % (2-4); Hematocrit 24.2 % (36-46); Hemoglobin 8.1 g/dL (12.0-16.0); Lymphocytes Absolute Auto 800 /uL (1100-4500); Lymphocytes Percent Auto 8.6 % (25-40); Mean Corpuscular HGB Conc 33.5 % (30-36); Mean Corpuscular Hemoglobin 30.1 PG (26-34); Mean Corpuscular Volume 89.6 fL (80-100); Monocytes Absolute Auto 500 /uL (0-900); Monocytes Percent Auto 5.7 % (3-14); Neutrophils Absolute Auto 7900 /uL (1500-7000); Neutrophils Percent Auto 85.4 % (50-75); Platelet Count 199 X10^3/uL (150-400); Red Cell Distribution Width 14.2 % (11.6-14.8); White Blood Cell Count 9.3 X10^3/uL (4.5-11.0)
[2023-12-23 06:36] LABS: Blood Urea Nitrogen 13 mg/dL (7-17); Calcium 7.6 mg/dL (8.4-10.2); Carbon Dioxide 29 mmol/L (22-32); Chloride 110 mmol/L (98-107); Estimated Glomerular Filt Rate > 60 mL/min (>60); Glucose 89 mg/dL (70-100); HEMOLYSIS < 15 (0-50); Potassium 3.4 mmol/L (3.4-5.1); Sodium 138 mmol/L (137-145)
[2023-12-23] MEDS: SODIUM CHLORIDE 0.9% 1,000 ML 100 ML IV ×2 (06:57→18:35)
[2023-12-23] MEDS: OXYCODONE IR 5 MG TABLET PO ×4 (08:00→17:02)
[2023-12-23 08:03] VITALS: BP 98/60; PULSE 74; RESP 18; TEMP 36.4; O2SAT 94
[2023-12-23] MEDS: ACETAMINOPHEN 325 MG TABLET 650 MG PO ×2 (08:04→17:01)
[2023-12-23] MEDS: CELECOXIB 200 MG CAPSULE PO ×2 (08:04→20:03)
[2023-12-23] MEDS: ENOXAPARIN 40 MG/0.4 ML SYRINGE SUBCUT (08:05)
[2023-12-23 09:14] VITALS: O2SAT 95
--- NOTE | 2023-12-23 10:14 | P.PN_ITS ---
Subjective Subjective Date Patient Seen: 12/23/23 Time Patient Seen: 10:14 Interval history: Feeling better today. Tolerating a regular diet. Drain output appears to be decreasing. Exam Vital Signs (past 8 hours): - 12/23/23 08:00 12/23/23 08:03 12/23/23 09:14 Temperature 97.6 F Pulse Rate 74 Respiratory Rate 18 Blood Pressure 98/60 Pulse Oximetry 94 95 Oxygen Delivery Method Nasal Cannula Nasal Cannula Oxygen Flow Rate 1 1 Oxygen Delivery Method Nasal Cannula Oxygen Flow Rate 1 Narrative Exam Narrative: Abdomen is soft Drain output appears slightly bilious but mostly serous Objective Labs 12/23/23 06:10 12/23/23 06:10 Labs: Laboratory Results - last 24 hr 12/22/23 12/23/23 06:26 06:10 WBC 11.0 9.3 RBC 2.94 L 2.70 L Hgb 8.6 L 8.1 L Hct 26.4 L 24.2 L MCV 89.7 89.6 MCH 29.4 30.1 MCHC 32.8 33.5 RDW 13.8 14.2 Plt Count 235 199 Neut % (Auto) 91.2 H 85.4 H Lymph % (Auto) 3.1 L 8.6 L [place] % (Auto) 5.7 5.7 Eos % (Auto) 0.0 L 0.2 L Baso % (Auto) 0.0 0.1 Neut # (Auto) 16234 H 7900 H Lymph # (Auto) 300 L 800 L [place] # (Auto) 600 500 Eos # (Auto) 0 0 Baso # (Auto) 0 0 Sodium 139 138 Potassium 3.7 3.4 Chloride 111 H 110 H Carbon Dioxide 26 29 BUN 10 13 Creatinine 0.54 0.59 Estimated GFR > 60 > 60 BUN/Creatinine Ratio 18.5 22.0 Glucose 126 H 89 Calcium 8.1 L 7.6 L Total Bilirubin 0.9 AST 42 H ALT 57 H Alkaline Phosphatase 111 Total Protein 5.4 L Albumin 2.7 L Globulin 2.7 Albumin/Globulin Ratio 1.0 PFSH Surgical History History of cholecystectomy Social History household members: family Smoking Status: Never smoker alcohol intake: never Assessment & Plan Assessment and plan (1) Postoperative intra-abdominal abscess: Status: Acute Plan The appearance of the drain output could be related to the use of Surgicel during the original cholecystectomy or could be some diluted bile that was spilled during the original operation. Alternatively a bile leak as possible but less likely. Continue drain and re-evaluate the volume and appearance of the drain output again tomorrow.
--- NOTE | 2023-12-23 10:25 | CM.DPNOTE ---
DCP Note SCRAPER MEAT reviewed EMR. Per RN, plan is to dc tomorrow on PO abx. Per surgeon note, plan is to re-evaluate drain output tomorrow as well. Plan: anticipate dc home with family support Sunday. Anticipate filling PO Abx script with in house pharmacy prior to dc. [place]. CM team will plan to follow closely DEVANTE Rosado
--- NOTE | 2023-12-23 17:20 | DI.RAD.S_ITS ---
PROCEDURE: XR CHEST 2V INDICATIONS: Please evaluate for atelectasis/pneumonia/lung problems TECHNIQUE: 2 views of the chest were acquired. COMPARISON: [facility], CT, CT ABDOMEN PELVIS W CON, 12/17/2023, 21:09. FINDINGS: Study is limited by difficulty with patient positioning. The patient was imaged in a wheelchair. Surgical changes and devices: Cholecystectomy clips are seen. Lungs and pleura: Low lung volumes are noted. This causes a crowded appearance to the lung markings and limits evaluation. Mild, streaky opacities are seen at the lung bases. Mild blunting of both costophrenic angles can be seen. No pneumothorax is seen. Mediastinum: Mediastinal contours are normal. Heart size is normal. Bones and chest wall: No suspicious bony abnormalities. Age-appropriate bony degenerative changes are seen. Soft tissues appear unremarkable. IMPRESSION: There is blunting of both costophrenic angles, which is likely related to small pleural effusions, although differential diagnosis includes artifact in this patient with low lung volumes. Presumed atelectasis is seen at the lung bases. Differential diagnosis includes minimal/early infiltrate, yet this is considered to be less likely. Postoperative and degenerative changes are seen. Dictated by: Jens Jones M.D. on 12/23/2023 at 17:35 Approved by: Jens Jones M.D. on 12/23/2023 at 17:37
--- NOTE | 2023-12-23 18:06 | PC.NURSE ---
Day shift: This afternoon patient still requiring 1L O2 to get O2 sats above 92 percent. Used box car washer to educate patient on incentive spirometer, cough/deep breathe. Patient appeared in pain with consistent facial grimace and repositioning, despite pain medications given almost every 4 hours today. Attempted to have patient ambulate around the unit. She walked approximately 50 feet and became dizzy and tired. She stated she could not walk further. Got wheelchair and assisted patient back to bed. Called MD Roman requesting PO oxycodone dose change to every 3 hours, rather than every 4. Also requested chest xray due to patient's continued oxygen needs and shortness of breath. SOREN Dewitt escorted patient via wheelchair for 2 view xray. Awaiting results. Will continue to monitor.
[2023-12-23] MEDS: HYDROMORPHONE 0.5 MG INJ IV (18:35)
[2023-12-23 19:00] VITALS: BP 96/61; PULSE 76; RESP 17; TEMP 36.6; O2SAT 99
[2023-12-23] MEDS: PANTOPRAZOLE DR 40 MG TABLET PO (20:03)
[2023-12-24] MEDS: OXYCODONE IR 5 MG TABLET PO ×5 (01:29→15:56)
[2023-12-24] MEDS: PIPERACILLIN/TAZO 3.375 GM in SODIUM CHLORIDE 0.9% 100 ML IV ×3 (02:45→18:49)
[2023-12-24] MEDS: SODIUM CHLORIDE 0.9% 1,000 ML 100 ML IV ×2 (05:02→16:01)
[2023-12-24 06:19] LABS: Add Manual Diff / Slide Review NO; Basophils Absolute Auto 0 /uL (0-100); Basophils Percent Auto 0.2 % (0-2); Eosinophils Absolute Auto 0 /uL (0-450); Eosinophils Percent Auto 0.2 % (2-4); Hematocrit 24.5 % (36-46); Hemoglobin 8.3 g/dL (12.0-16.0); Lymphocytes Absolute Auto 800 /uL (1100-4500); Lymphocytes Percent Auto 8.7 % (25-40); Mean Corpuscular HGB Conc 33.9 % (30-36); Mean Corpuscular Volume 88.5 fL (80-100); Monocytes Absolute Auto 700 /uL (0-900); Monocytes Percent Auto 8.1 % (3-14); Neutrophils Absolute Auto 7300 /uL (1500-7000); Neutrophils Percent Auto 82.8 % (50-75); Platelet Count 223 X10^3/uL (150-400); Red Blood Cell Count 2.77 X10^6/uL (4.0-5.2); Red Cell Distribution Width 13.9 % (11.6-14.8); White Blood Cell Count 8.8 X10^3/uL (4.5-11.0)
[2023-12-24 06:26] LABS: Alanine Aminotransferase 29 IU/L (<35); Albumin 2.6 g/dL (3.5-5.0); Alkaline Phosphatase 105 U/L (38-126); Aspartate Aminotransferase 22 IU/L (14-36); BUN Creatinine Ratio 9.8 (6-22); Bilirubin Total 0.8 mg/dL (0.2-1.3); Blood Urea Nitrogen 5 mg/dL (7-17); Calcium 7.6 mg/dL (8.4-10.2); Carbon Dioxide 29 mmol/L (22-32); Chloride 108 mmol/L (98-107); Estimated Glomerular Filt Rate > 60 mL/min (>60); Globulin 2.6 g/dL (1.7-4.1); Glucose 100 mg/dL (70-100); HEMOLYSIS < 15 (0-50); Sodium 139 mmol/L (137-145); Total Protein 5.2 g/dL (6.3-8.2)
[2023-12-24] MEDS: HYDROMORPHONE 0.5 MG INJ IV (06:46)
[2023-12-24 07:00] VITALS: BP 105/60; PULSE 85; RESP 18; TEMP 37.4; O2SAT 96
[2023-12-24] MEDS: ACETAMINOPHEN 325 MG TABLET 650 MG PO ×2 (09:40→15:56)
[2023-12-24] MEDS: ENOXAPARIN 40 MG/0.4 ML SYRINGE SUBCUT (09:40)
[2023-12-24] MEDS: CELECOXIB 200 MG CAPSULE PO ×2 (09:40→21:08)
--- NOTE | 2023-12-24 12:56 | DI.CT.S_ITS ---
PROCEDURE: CT ABDOMEN PELVIS W CON INDICATIONS: Abdominal pain TECHNIQUE: After the administration of intravenous contrast, axial sections acquired from the lung bases to the pubic symphysis. Coronal and sagittal reformats were performed. For radiation dose reduction, the following was used: automated exposure control, adjustment of mA and/or kV according to patient size. COMPARISON: [facility], CT, CT ABDOMEN PELVIS W CON, 12/17/2023, 21:09. FINDINGS: Image quality: Diagnostic. Lower Chest: Small left and trace right pleural effusion with associated bibasilar consolidations, probably atelectasis. These are new since the previous exam. ABDOMEN: Liver: Irregular parenchymal hypodensity centrally in the liver just above the gallbladder fossa is new since the prior exam. Trace perihepatic fluid anteriorly. Gallbladder: Surgically absent gallbladder with several clips at the khushboo hepatis. There is a drain coursing across the gallbladder fossa. There is a thin tubular peripherally enhancing small fluid collection lateral to the hepatic flexure, likely connecting to the trace perihepatic fluid. There is moderate fat stranding in the right upper quadrant. Biliary ducts: Mild central intrahepatic biliary prominence.No extrahepatic biliary dilatation. Pancreas: Normal size and morphology without visible ductal dilatation or inflammation. Spleen: Size is within normal limits. Adrenal Glands: No adrenal nodules. Kidneys and Ureters: No hydronephrosis. No solid mass. No complex renal cystic lesion which requires follow up. Stomach and Bowel: There is a small amount of perigastric fluid surrounding the proximal portion. Small bowel loops are otherwise normal caliber. Liquid stool present in the proximal colon. Peritoneum: Thin-walled, minimally peripherally enhancing fluid collection in the cul-de-sac measures about 9.2 x 2.5 by 4.7 cm. No significant free intraperitoneal air. Ventral Wall: Periumbilical skin polo. Abdominal Nodes: No retroperitoneal or mesenteric adenopathy by size criteria. Vessels: Aorta and inferior vena cava are normal in size. PELVIS: Pelvic Organs: Uterus and ovaries are normal. Bladder: No bladder wall thickening, accounting for underdistention. Pelvic Nodes: No enlarged lymph nodes. Miscellaneous: No inguinal hernias are seen. Bones: No aggressive osseous abnormality. IMPRESSION: Recent cholecystectomy with trace residual perihepatic fluid, inflammation, and pelvic fluid, nonspecific. An irregular central hepatic hypodensity may be a small iatrogenic contusion post surgery. Bibasilar consolidations and effusions, left worse than right, most commonly atelectasis although infection cannot be excluded. Dictated by: Rahel Steiner M.D. on 12/24/2023 at 14:55 Approved by: Rahel Steiner M.D. on 12/24/2023 at 15:05
--- NOTE | 2023-12-24 12:57 | P.PN_ITS ---
Subjective Subjective Date Patient Seen: 12/24/23 Time Patient Seen: 12:57 Interval history: Mckayla continues to have abdominal discomfort and weakness. She has not had a bowel movement yet. Exam Vital Signs (past 8 hours): - 12/24/23 07:00 12/24/23 07:30 Temperature 99.3 F Pulse Rate 85 Respiratory Rate 18 Blood Pressure 105/60 Pulse Oximetry 96 Oxygen Delivery Method Nasal Cannula Oxygen Flow Rate 1 Oxygen Delivery Method Nasal Cannula Oxygen Flow Rate 1 Narrative Exam Narrative: Fatigued appearing Drain output continues to appear serous with a slight tinge of bile color Objective Labs 12/24/23 05:50 12/24/23 05:50 Labs: Laboratory Results - last 24 hr 12/24/23 05:50 WBC 8.8 RBC 2.77 L Hgb 8.3 L Hct 24.5 L MCV 88.5 MCH 30.0 MCHC 33.9 RDW 13.9 Plt Count 223 Neut % (Auto) 82.8 H Lymph % (Auto) 8.7 L [place] % (Auto) 8.1 Eos % (Auto) 0.2 L Baso % (Auto) 0.2 Neut # (Auto) 7300 H Lymph # (Auto) 800 L [place] # (Auto) 700 Eos # (Auto) 0 Baso # (Auto) 0 Sodium 139 Potassium 3.0 L Chloride 108 H Carbon Dioxide 29 BUN 5 L Creatinine 0.51 L Estimated GFR > 60 BUN/Creatinine Ratio 9.8 Glucose 100 Calcium 7.6 L Total Bilirubin 0.8 AST 22 ALT 29 Alkaline Phosphatase 105 Total Protein 5.2 L Albumin 2.6 L Globulin 2.6 Albumin/Globulin Ratio 1.0 [facility] Surgical History History of cholecystectomy Social History household members: family Smoking Status: Never smoker alcohol intake: never Assessment & Plan Assessment and plan (1) Postoperative intra-abdominal abscess: Status: Acute Plan We will repeat CT scan to see if there is any undrained fluid collection
[2023-12-24] MEDS: polyethylene glycoL 3350 17 GM POWD.PACK PO (14:29)
--- NOTE | 2023-12-24 16:19 | CM.DPNOTE ---
DCP Note ASPHALT PLANT OPERATOR reviewed EMR. Per Rn, pt doing much better today with drain/ambulation/on room air. Anticipate dc home tomorrow. P: dc home when medically stable, anticipate tomorrow. CM team will arrange for meds to be filled with in house pharmacy, will call for Ralf to transport to [facility], and wiill arranging with pt's sister to pick patient up from [facility]. CM team will follow closely. DEVANTE Rosado
[2023-12-24 19:00] VITALS: BP 110/60; PULSE 81; RESP 17; TEMP 36.9; O2SAT 93
[2023-12-24] MEDS: POTASSIUM CHLORIDE 20 MEQ TAB 40 MEQ PO (21:08)
[2023-12-24] MEDS: PANTOPRAZOLE DR 40 MG TABLET PO (21:08)
--- NOTE | 2023-12-25 01:06 | PC.NURSE ---
Addendum entered by Cristel Galvan R.N. 12/25/23 04:46: Patient had moderate-sized BM (brown, soft). Denies pain, states that she feels much better. 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 Pain in abdomen is 3/10, states that pain medication has been effective, denies nausea. Ambulating to the bathroom with SBA & FWW, no BM yet but is passing gas, bowel tones are active. Lap sites on abdomen are covered w/ allevyn dressings, CDI. Notified MD Roman of low potassium, PO replacement ordered and given. O2 saturation in mid-high 90's while awake, desats to 88% on RA while asleep; placed patient on 1L NC while sleeping. IVF & IV abx infusing as ordered. Oriented to call-light, plan of care ongoing.
[2023-12-25] MEDS: SODIUM CHLORIDE 0.9% 1,000 ML 100 ML IV (02:39)
[2023-12-25] MEDS: PIPERACILLIN/TAZO 3.375 GM in SODIUM CHLORIDE 0.9% 100 ML IV (03:00)
[2023-12-25 08:00] VITALS: BP 120/67; PULSE 86; RESP 18; TEMP 37.1; O2SAT 96
[2023-12-25] MEDS: ENOXAPARIN 40 MG/0.4 ML SYRINGE SUBCUT (09:02)
[2023-12-25] MEDS: OXYCODONE IR 5 MG TABLET PO (09:02)
[2023-12-25] MEDS: CELECOXIB 200 MG CAPSULE PO (09:03)
--- NOTE | 2023-12-25 11:28 | CM.DPNOTE ---
DCP note ACCOUNTS PAYABLE SUPERVISOR reviewed EMR. Pt cleared for dc home today. ACCOUNTS PAYABLE SUPERVISOR spoke with brother/ALIYAH on the phone. 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 Per surgeon, okay with priority boarding pass and pt can return to work saturday 12/30. ACCOUNTS PAYABLE SUPERVISOR completed priority boarding pass form and work excuse letter. ACCOUNTS PAYABLE SUPERVISOR coordinated with RN coordinator/RN/pharmacy on pt's meds being ordered here. Per pharmacy, meds were ready and out of pocket cost is $12. ACCOUNTS PAYABLE SUPERVISOR met with ALIYAH, Brother, and pt in room. Utilized online translation via IPAD, mail agent ID [id number]. ACCOUNTS PAYABLE SUPERVISOR gave them priority boarding pass, reviewed medication plan, gave copy of chanel packet, and provided excuse from work letter. Pt appreciative. Denied other DCP needs. ACCOUNTS PAYABLE SUPERVISOR updated RN/MOLECULAR PHYSICIST, MOLECULAR PHYSICIST agreed to help pt find pharmacy on way out. P: pt to dc today home to [place] with family support, will p/u medications here. CM team will continue to follow as needed. DEVANTE Rosado
--- NOTE | 2023-12-25 12:33 | PC.NURSE ---
Discharge: Pt feels ready to d/c to home. Translation service used. Engineering Aide [id number]. Family is also in room. Reviewed d/c instructions, the teaching sheets were printed in guatemalan. Dr. Mariscal called, told that pt feels a little sob but not bad. He reports it is from the abscess poss irritating the diaphram. Pt was given sheet for IS and told to use it every 2 hours while she was awake to prevent further atelectesis. Pt understands her limitations post-op. After information given family was given the time to ask questions through the financial aid administrator. Questions answered. Pt d/c to home via auto with family.
== END 2023-12-25 11:20 | disposition home or self-care (01) | DRG 856 ==
PROVIDERS: Surgery; Admitting Provider Surgery; Referring Provider Surgery; Visit Provider Surgery
PROC: 0W9G4ZX Drainage of Peritoneal Cavity, Percutaneous Endoscopic Approach, Diagnostic (ICD-10-PCS; CPT 49320; principal; 2023-12-21 16:30)
DX: T81.43XA Infection following a procedure, organ and space surgical site, initial encounter (principal); K65.1 Peritoneal abscess; Z90.49 Acquired absence of other specified parts of digestive tract
CPT/HCPCS: 36415; 49321; 71046; 74177; 80048; 80053; 85025; 87070; 87075; 87186; 87205; 94760; 94762; G0378; G0379; J0330; J1100; J1170; J1650; J2250; J2405; J2543; J2704; J3010; J3490; Q9967

== ENCOUNTER 2024-02-08 10:50 | Observation (INO) | payer SELFPAY ==
[2024-02-07 13:29] VITALS: BMI 29.0
[2024-02-08] VITALS (14 sets, daily range): BP systolic 85–115; BP diastolic 50–68; PULSE 64–84; RESP 14–24; TEMP 37–37.1; O2SAT 82–100; BMI 28.3
--- NOTE | 2024-02-08 | DI.NM.S_ITS ---
PROCEDURE: NM HIDA NO EJECTION FRACTION RADIOPHARMACEUTICAL: 5.5 mCi Tc-99m mebrofenin IV. INDICATIONS: possible bile leak TECHNIQUE: Following intravenous administration of Tc-99m mebrofenin, sequential anterior abdominal images were obtained through at least 60 minutes. COMPARISON: [facility], CT, CT ABDOMEN PELVIS W CON, 02/08/2024, 12:06. FINDINGS: There is normal tracer uptake and excretion by the liver. There is normal visualization of intrahepatic ducts, common bile duct, and the gallbladder. There is normal tracer excretion into duodenum. IMPRESSION: No visualized leak. Dictated by: Meryl Burns M.D. on 02/08/2024 at 15:54 Approved by: Meryl Burns M.D. on 02/08/2024 at 15:56
--- NOTE | 2024-02-08 11:08 | ED.ABDPAIN ---
HPI - Abdominal Pain General Chief Complaint: Abdominal Pain Stated Complaint: increase pain after surgery, sent by [facility] Time Seen by Provider: 02/08/24 10:58 Source: patient and land title examiner Mode of arrival: Ambulatory History of Present Illness HPI narrative: 53-year-old female with no reported past medical history presents for nausea, vomiting, generalized abdominal pain, worse in the midepigastric region. Patient had laparoscopic removal of gallbladder on 12/18/[address] [facility]. Complicated by postoperative fluid collection. Patient had postoperative follow up 01/04/[address] Mariscal, she appeared to be healing well. For the last 3 days patient has had recurrence of abdominal pain with nausea and vomiting. None of the medications she has taken at home have improved her symptoms. She went to the walk-in clinic, but was referred to the emergency department for evaluation. History and exam obtained with help of land title examiner services at bedside, patient was Croatian-speaking only Related Data Home Medications Medication Instructions Recorded Confirmed famotidine 40 mg tablet 40 mg PO ONCE PM PRN heartburn 12/18/23 01/04/24 pantoprazole 40 mg tablet,delayed 40 mg PO QAM 12/18/23 01/04/24 release Previous Rx's Medication Instructions Recorded oxycodone 5 mg tablet 5 mg PO Q8H PRN pain #14 tabs 12/25/23 Allergies Allergy/AdvReac Type Severity Reaction Status Date / Time morphine Allergy Verified 02/08/24 11:03 Patient History Surgical History History of cholecystectomy Social History household members: family Smoking Status: Never smoker alcohol intake: never Smoking Status: Never smoker alcohol intake frequency: holidays/special occasions only Substance Use Type: does not use Exam Initial Vital Signs Initial Vital Signs: Vital Signs Temperature 98.7 F 02/08/24 10:55 Pulse Rate 82 02/08/24 10:55 Respiratory Rate 14 02/08/24 10:55 Blood Pressure 115/65 02/08/24 10:55 Pulse Oximetry 100 02/08/24 10:55 Oxygen Delivery Method Room Air 02/08/24 10:55 Const: Awake, alert, in pain, no acute distress Cardiac: regular rate, regular rhythm RESP: unlabored, clear bilaterally, no wheezing GI: Soft, generalized tenderness to palpation without rebound or guarding Skin: Warm, Dry, intact, no rashes Neuro: AO x3, CN II-XII grossly intact, moves all extremities Course Orders Ordered: ED Orders 02/08/24 11:47 CT abdomen pelvis w con Stat 02/08/24 11:57 CBC Auto Diff [Complete Blood Count AUTO DIFF] Stat CMP [Comprehensive Metabolic Panel] Stat Lactate (Lactic Acid) Stat Lipase Stat 02/08/24 12:24 Blood Culture Stat Discontinued Medications Hydromorphone HCl (Hydromorphone 0.5 Mg Inj) 0.5 mg IV NOW ONE Stop: 02/08/24 11:48 Last Admin: 02/08/24 12:03 Dose: 0.5 mg Documented By: KIESHA Sodium Chloride (Normal Saline 0.9%) 1,000 mls @ 1,000 mls/hr IV BOLUS ONE Stop: 02/08/24 12:46 Last Infusion: 02/08/24 12:52 Dose: Infused Documented By: Admin: 02/08/24 12:03 Dose: 1,000 mls/hr Documented By: KIESHA Piperacillin Sod/Tazobactam (Sod 4.5 gm/ Sodium Chloride) 100 mls @ 200 mls/hr IV NOW ONE Stop: 02/08/24 12:25 Last Admin: 02/08/24 12:41 Dose: 200 mls/hr Documented By: KIESHA Ondansetron HCl (Ondansetron 4 Mg/2 Ml Inj) 4 mg IV NOW ONE Stop: 02/08/24 11:48 Last Admin: 02/08/24 12:03 Dose: 4 mg Documented By: KIESHA Vital Signs Vital signs: Vital Signs - 8 hr 02/08/24 10:55 02/08/24 11:00 02/08/24 11:00 Temperature 98.7 F Pulse Rate 82 84 Respiratory Rate 14 Blood Pressure 115/65 115/68 Pulse Oximetry 100 99 Oxygen Delivery Method Room Air 02/08/24 11:30 02/08/24 11:30 02/08/24 12:00 Temperature Pulse Rate 82 74 Respiratory Rate Blood Pressure 93/54 L Pulse Oximetry 98 99 Oxygen Delivery Method 02/08/24 12:19 02/08/24 12:19 02/08/24 12:28 Temperature Pulse Rate 74 68 Respiratory Rate Blood Pressure 88/55 L Pulse Oximetry 100 99 Oxygen Delivery Method 02/08/24 12:28 02/08/24 12:30 02/08/24 12:31 Temperature Pulse Rate 73 Respiratory Rate Blood Pressure 85/50 L 94/52 L Pulse Oximetry 100 Oxygen Delivery Method 02/08/24 12:31 02/08/24 13:00 Temperature Pulse Rate 71 80 Respiratory Rate 24 Blood Pressure Pulse Oximetry 99 99 Oxygen Delivery Method MDM - Abdominal Pain Lab Data 02/08/24 11:57 02/08/24 11:57 Labs: Lab Results 02/08/24 Range/Units 11:57 WBC 12.1 H (4.5-11.0) X10^3/uL RBC 4.03 (4.0-5.2) X10^6/uL Hgb 11.6 L (12.0-16.0) g/dL Hct 35.0 L (36-46) % MCV 86.7 (80-100) fL MCH 28.7 (26-34) PG MCHC 33.1 (30-36) % RDW 14.7 (11.6-14.8) % Plt Count 353 (150-400) X10^3/uL Neut % (Auto) 77.0 H (50-75) % Lymph % (Auto) 16.0 L (25-40) % [place] % (Auto) 6.0 (3-14) % Eos % (Auto) 0.6 L (2-4) % Baso % (Auto) 0.4 (0-2) % Neut # (Auto) 9300 H (2008-3271) /uL Lymph # (Auto) 1900 (9352-8205) /uL [place] # (Auto) 700 (0-900) /uL Eos # (Auto) 100 (0-450) /uL Baso # (Auto) 0 (0-100) /uL Sodium 135 L (137-145) mmol/L Potassium 3.8 (3.4-5.1) mmol/L Chloride 103 (98-107) mmol/L Carbon Dioxide 23 (22-32) mmol/L BUN 14 (7-17) mg/dL Creatinine 0.59 (0.52-1.04) mg/dL Estimated GFR > 60 (>60) mL/min BUN/Creatinine Ratio 23.7 H (6-22) Glucose 95 (70-100) mg/dL Lactate 0.8 (0.7-2.1) mmol/L Calcium 9.2 (8.4-10.2) mg/dL Total Bilirubin 0.8 (0.2-1.3) mg/dL AST 35 (14-36) IU/L ALT 44 H (<35) IU/L Alkaline Phosphatase 237 H (38-126) U/L Total Protein 7.7 (6.3-8.2) g/dL Albumin 4.1 (3.5-5.0) g/dL Globulin 3.6 (1.7-4.1) g/dL Albumin/Globulin Ratio 1.1 (1.0-2.8) Lipase 81 (23-300) U/L MDM Narrative Medical decision making narrative: Three days of pain with vomiting and diarrhea. Hemodynamically stable. Abdomen is soft but generally tender to palpation. With history of recent laparoscopic cholecystectomy and postoperative fluid collection repeat laboratory work and CT imaging ordered. Laboratory work reviewed, WBC count 12.9, other laboratory work remarkable for ALT 44, alk phos 237. CT of the abdomen and pelvis shows slightly increasing fluid collection in the abdomen. Empiric Zosyn and blood cultures ordered for coverage. Discussed results with Dr. Light of General surgery, who reviewed the images and will admit patient for HIDA scan and further evaluation. Discharge Plan Departure Patient Disposition: Admitted as Observation Clinical Impression: Postoperative intra-abdominal abscess, Abdominal pain Prescriptions: No Action famotidine 40 mg tablet 40 mg PO ONCE PM PRN (Reason: heartburn) pantoprazole 40 mg tablet,delayed release (DR/EC) 40 mg PO QAM oxycodone 5 mg tablet 5 mg PO Q8H PRN (Reason: pain) Qty: 14 0RF Referrals: Miscellaneous,Doctor, [Primary Care Provider] - Admit Date/Time: 02/08/24 13:07 Admit Provider: Mechelle Light
--- NOTE | 2024-02-08 11:47 | DI.CT.S_ITS ---
PROCEDURE: CT ABDOMEN PELVIS W CON INDICATIONS: CENTER ABD PAIN, RECENT INTRA-ABDOMINAL ABSCESS TECHNIQUE: After the administration of intravenous contrast, axial sections acquired from the lung bases to the pubic symphysis. Coronal and sagittal reformats were performed. For radiation dose reduction, the following was used: automated exposure control, adjustment of mA and/or kV according to patient size. COMPARISON: [facility], CT, CT ABDOMEN PELVIS W CON, 12/17/2023, 21:09. [facility], CT, CT ABDOMEN PELVIS W CON, 12/24/2023, 13:47. FINDINGS: Image quality: Diagnostic. Lower Chest: Streaky opacities in the right base likely atelectasis. ABDOMEN: Liver: No solid mass. Hepatic steatosis. Previously identified central hepatic hypodensity is unchanged. Gallbladder: Removed. Biliary ducts: No biliary dilation. Pancreas: No ductal dilation. Spleen: Size is within normal limits. Adrenal Glands: No adrenal nodules. Kidneys and Ureters: No hydronephrosis. No solid mass. No complex renal cystic lesion which requires follow up. Stomach and Bowel: Normal colonic caliber, without significant wall thickening. Peritoneum: Interval drain removal in the right upper quadrant. There is appearance of mild increased fluid inferior and anterior to the proximal jejunum measuring 3.7 x 5.4 cm. This is noted to be medial and inferior to the previous right hemiabdomen fluid collection. Ventral Wall: No significant ventral hernia. Abdominal Nodes: No retroperitoneal or mesenteric adenopathy by size criteria. Vessels: Aorta and inferior vena cava are normal in size. PELVIS: Pelvic Organs: Unremarkable. Bladder: No bladder wall thickening, accounting for underdistention. Pelvic Nodes: No enlarged lymph nodes. Miscellaneous: No inguinal hernias are seen. Bones: No aggressive osseous abnormality. IMPRESSION: Interval fluid collection overlying the mid abdomen as described above. This appears to represent represent phlegmon versus developing abscess. Dictated by: Meryl Burns M.D. on 02/08/2024 at 12:40 Approved by: Meryl Burns M.D. on 02/08/2024 at 12:50
[2024-02-08] MEDS: HYDROMORPHONE 0.5 MG INJ IV (12:03)
[2024-02-08] MEDS: ONDANSETRON 4 MG/2 ML INJ IV (12:03)
[2024-02-08] MEDS: SODIUM CHLORIDE 0.9% 1,000 ML 1000 ML IV (12:03)
[2024-02-08 12:05] LABS: Add Manual Diff / Slide Review NO; Basophils Absolute Auto 0 /uL (0-100); Basophils Percent Auto 0.4 % (0-2); Eosinophils Absolute Auto 100 /uL (0-450); Eosinophils Percent Auto 0.6 % (2-4); Hemoglobin 11.6 g/dL (12.0-16.0); Lymphocytes Absolute Auto 1900 /uL (1100-4500); Mean Corpuscular HGB Conc 33.1 % (30-36); Mean Corpuscular Hemoglobin 28.7 PG (26-34); Mean Corpuscular Volume 86.7 fL (80-100); Monocytes Absolute Auto 700 /uL (0-900); Neutrophils Absolute Auto 9300 /uL (1500-7000); Platelet Count 353 X10^3/uL (150-400); Red Blood Cell Count 4.03 X10^6/uL (4.0-5.2); Red Cell Distribution Width 14.7 % (11.6-14.8); White Blood Cell Count 12.1 X10^3/uL (4.5-11.0)
[2024-02-08 12:19] LABS: Alanine Aminotransferase 44 IU/L (<35); Albumin 4.1 g/dL (3.5-5.0); Albumin Globulin Ratio 1.1 (1.0-2.8); Alkaline Phosphatase 237 U/L (38-126); Aspartate Aminotransferase 35 IU/L (14-36); BUN Creatinine Ratio 23.7 (6-22); Bilirubin Total 0.8 mg/dL (0.2-1.3); Blood Urea Nitrogen 14 mg/dL (7-17); Calcium 9.2 mg/dL (8.4-10.2); Carbon Dioxide 23 mmol/L (22-32); Chloride 103 mmol/L (98-107); Estimated Glomerular Filt Rate > 60 mL/min (>60); Globulin 3.6 g/dL (1.7-4.1); Glucose 95 mg/dL (70-100); HEMOLYSIS < 15 (0-50); Lactate (Lactic Acid) 0.8 mmol/L (0.7-2.1); Lipase 81 U/L (23-300); Potassium 3.8 mmol/L (3.4-5.1); Sodium 135 mmol/L (137-145); Total Protein 7.7 g/dL (6.3-8.2)
[2024-02-08] MEDS: PIPERACILLIN/TAZO 4.5 GM in SODIUM CHLORIDE 0.9% 100 ML IV (12:41)
--- NOTE | 2024-02-08 13:40 | PC.NURSE ---
Belongings bagged with patient label, set on stretcher and sent with patient to IR.
[2024-02-08] MEDS: DEXTROSE 5%-0.45% NS 1,000 ML 100 ML IV (15:24)
[2024-02-08 18:10] LABS: MRSA (Nasal) PCR NOT DETECTED (Not Detect)
--- NOTE | 2024-02-08 18:24 | PM.HP.1 ---
History of Present Illness History of Present Illness Date Patient Seen: 02/08/24 Time Patient Seen: 18:24 Chief complaint: increase pain after surgery, sent by [facility] Narrative: abdominal pain with tenderness to touch (generalized). No fever, language barrier with Angolan speaking. +Nausea, +vomiting and anorexia for 3 days. Alkphos is elevated, mild leukocytosis. CT scan i reviewed personally and agree there is fluid vs inflammation in the area of the jejunum, possible related to previous fluid collection wash out. [facility] Surgical History History of cholecystectomy Social History household members: family Smoking Status: Never smoker alcohol intake: never Meds Home Medications and Allergies Home Medications Medication Instructions Recorded Confirmed Type famotidine 40 mg tablet 40 mg PO ONCE PM PRN heartburn 12/18/23 01/04/24 History pantoprazole 40 mg tablet,delayed 40 mg PO QAM 12/18/23 01/04/24 History release Allergies Allergy/AdvReac Type Severity Reaction Status Date / Time morphine Allergy Verified 02/08/24 11:03 Review of Systems Review of Systems ROS: Yes All systems reviewed with the patient and are negative except as otherwise documented Exam Vital Signs (past 8 hours): - 02/08/24 10:55 02/08/24 11:00 02/08/24 11:00 Temperature 98.7 F Pulse Rate 82 84 Respiratory Rate 14 Blood Pressure 115/65 115/68 Pulse Oximetry 100 99 Oxygen Delivery Method Room Air Oxygen Flow Rate 02/08/24 11:30 02/08/24 11:30 02/08/24 12:00 Temperature Pulse Rate 82 74 Respiratory Rate Blood Pressure 93/54 L Pulse Oximetry 98 99 Oxygen Delivery Method Oxygen Flow Rate 02/08/24 12:19 02/08/24 12:19 02/08/24 12:28 Temperature Pulse Rate 74 68 Respiratory Rate Blood Pressure 88/55 L Pulse Oximetry 100 99 Oxygen Delivery Method Oxygen Flow Rate 02/08/24 12:28 02/08/24 12:30 02/08/24 12:31 Temperature Pulse Rate 73 Respiratory Rate Blood Pressure 85/50 L 94/52 L Pulse Oximetry 100 Oxygen Delivery Method Oxygen Flow Rate 02/08/24 12:31 02/08/24 13:00 02/08/24 15:55 Temperature Pulse Rate 71 80 Respiratory Rate 24 Blood Pressure Pulse Oximetry 99 99 Oxygen Delivery Method Room Air Oxygen Flow Rate 02/08/24 18:00 Temperature Pulse Rate 65 Respiratory Rate 20 Blood Pressure 94/52 L Pulse Oximetry 98 Oxygen Delivery Method Oxygen Flow Rate 0 Oxygen Delivery Method Room Air Oxygen Flow Rate 0 Const General: cooperative, in distress and ill appearing Nutritional Appearance: average body habitus [facility] Head: normocephalic and atraumatic Ears: hearing grossly normal bilaterally Eyes Sclera: sclerae normal Neck Neck: trachea midline and No JVD Chest Chest: normal inspection of the chest Resp Effort & Inspection: normal respiratory effort and able to speak in complete sentences Cardio Rate: regular rate Rhythm: regular rhythm GI Palpation: soft and tender (generalized and very tender to palpation) Skin General: elasticity normal and turgor normal Neuro General: patient alert, patient awake and patient oriented x3 Speech: speech normal Psych Mental Status: mental status grossly normal Judgment: judgment good Objective Labs 02/09/24 04:22 02/08/24 11:57 Labs: Laboratory Results - last 24 hr 02/08/24 02/08/24 11:57 15:30 WBC 12.1 H RBC 4.03 Hgb 11.6 L Hct 35.0 L MCV 86.7 MCH 28.7 MCHC 33.1 RDW 14.7 Plt Count 353 Neut % (Auto) 77.0 H Lymph % (Auto) 16.0 L [place] % (Auto) 6.0 Eos % (Auto) 0.6 L Baso % (Auto) 0.4 Neut # (Auto) 9300 H Lymph # (Auto) 1900 [place] # (Auto) 700 Eos # (Auto) 100 Baso # (Auto) 0 Sodium 135 L Potassium 3.8 Chloride 103 Carbon Dioxide 23 BUN 14 Creatinine 0.59 Estimated GFR > 60 BUN/Creatinine Ratio 23.7 H Glucose 95 Lactate 0.8 Calcium 9.2 Total Bilirubin 0.8 AST 35 ALT 44 H Alkaline Phosphatase 237 H Total Protein 7.7 Albumin 4.1 Globulin 3.6 Albumin/Globulin Ratio 1.1 Lipase 81 Nasal Screen MRSA (PCR) Not detected Assessment & Plan Assessment & Plan narrative: H/o Lap evelin 4 weeks prior. with post op complication of abscess intra abdominal. Now with new on set pain, No bile leak, possible retained CBD stone. Plan: Continue conservative care with repeat LFT's. If pain doesn't resolve or LFTs abnormal, MRCP. Time-Based Coding :: [TOTAL MINUTES] spent with patient and on the chart (including review of chart, obtaining history, exam, reviewing outside data, placing orders, documenting exam and treatment plan, and counseling patient) on [DATE].
[2024-02-08] MEDS: PANTOPRAZOLE 40 MG VIAL IV (20:39)
[2024-02-08] MEDS: ACETAMINOPHEN 325 MG TABLET 650 MG PO (20:39)
[2024-02-08] MEDS: SODIUM CHLORIDE 0.9% FLUSH 10 ML IV (20:51)
[2024-02-09] VITALS (18 sets, daily range): BP systolic 90–116; BP diastolic 53–74; PULSE 59–75; RESP 16–20; TEMP 36.4–37; O2SAT 97–98
[2024-02-09] MEDS: DEXTROSE 5%-0.45% NS 1,000 ML 100 ML IV ×2 (01:06→10:52)
[2024-02-09 04:55] LABS: Add Manual Diff / Slide Review NO; Basophils Absolute Auto 0 /uL (0-100); Basophils Percent Auto 0.4 % (0-2); Eosinophils Absolute Auto 100 /uL (0-450); Eosinophils Percent Auto 1.4 % (2-4); Hematocrit 32.7 % (36-46); Hemoglobin 10.8 g/dL (12.0-16.0); Lymphocytes Absolute Auto 1300 /uL (1100-4500); Mean Corpuscular HGB Conc 33.1 % (30-36); Mean Corpuscular Hemoglobin 28.9 PG (26-34); Mean Corpuscular Volume 87.2 fL (80-100); Monocytes Absolute Auto 500 /uL (0-900); Monocytes Percent Auto 7.1 % (3-14); Neutrophils Absolute Auto 4900 /uL (1500-7000); Neutrophils Percent Auto 72.1 % (50-75); Platelet Count 329 X10^3/uL (150-400); Red Blood Cell Count 3.75 X10^6/uL (4.0-5.2); Red Cell Distribution Width 14.4 % (11.6-14.8); White Blood Cell Count 6.7 X10^3/uL (4.5-11.0)
[2024-02-09] MEDS: ACETAMINOPHEN 325 MG TABLET 650 MG PO ×2 (08:14→19:51)
[2024-02-09] MEDS: PANTOPRAZOLE 40 MG VIAL IV ×2 (08:15→20:51)
[2024-02-09] MEDS: SODIUM CHLORIDE 0.9% FLUSH 10 ML IV ×2 (08:15→21:09)
--- NOTE | 2024-02-09 12:04 | CM.DANOTE ---
Addendum entered by DEVANTE Rosado 02/09/24 14:09: Per surgeon note, continue to observe and advance diet, continue antibiotics. Continue potential for MRCP. Per chart review and RN report, pt not currently getting antibiotics at this time. VIK Original Note: DCP Assessment Note Pt is a 53yo F resident of [place] on [facility], admitted for increased post op pain lap evelin from early December. Pt speaks French. Lives in mobile home with sister and KEVIN. Per ED note, post op intra abdominal abscess likely. Pt does not have a PCP or established ins here. Pt here on 7 month work visa. During previous admission, Pt's family requested that any prescriptions be sent to the [place] [facility] (Address: [address], [place] [address]; ph# [phone]) so they can coordinate picking up and paying for any medications necessary (CM note 12/21/23). During last admission, sister and K[place] team gave them priority boarding pass, copy of chanel packet, and work excuse letter. Per surgeon note, pt having increased pain and was sent here by [facility] on [address]. Per surgeon note, continue with conservative treatment and if pain does not resolve, plan for MRCP. Per RN, pt pain better managed today. Gallbladder scan neg for bile leak. Plan: Plan of care evolving, anticipating pt to discharge with [place] voucher [place] meet family vs family to brain picker pt. CM team will plan to follow clinical course closely for assessment of need and coordination of discharge plan. follow for boarding pass/chanel packet/work excuse letter need DEVANTE Rosado Discharge Planning/Care Management CM Discharge Assessment Start: 02/09/24 12:01 Freq: Status: Active Protocol: Document 02/09/24 12:01 VIK (Rec: 02/09/24 12:04 [id number]) Discharge Planning Assessment Assigned Explosive Ordnance Specialist DEVANTE Neal Advance Directives? No History Provided By Patient,Medical Record Has Patient been admitted in last 30 No days? Comment recent admissions early December Prior Living Arrangements House Household Members family Type of transporation used prior to Relies on Others admit Independent with ADL's Yes Is patient alert and oriented? Yes Discharge Plan Home Transportation Arrangement Family and ferry Referrals Initiated None needed Review Status In Process Please Provide Date Initial DC 02/09/24 Assessment Was Performed Next Review Type Continued Stay Review
--- NOTE | 2024-02-09 12:54 | P.PN_ITS ---
Subjective Subjective Date Patient Seen: 02/09/24 Time Patient Seen: 12:55 Interval history: pain is markedly better. sanding machine tender automatic to touch in the area that corresponds to the inflammation on CT. HIDA negative. LFT pending, WBC normal. Exam Vital Signs (past 8 hours): - 02/09/24 07:00 02/09/24 07:45 02/09/24 08:17 Temperature 97.5 F L Pulse Rate 72 Respiratory Rate 16 Blood Pressure 90/55 L 107/66 Pulse Oximetry 97 Oxygen Delivery Method Room Air Oxygen Flow Rate 0 Oxygen Delivery Method Room Air Oxygen Flow Rate 0 Narrative Exam Narrative: Improved tenderness, nausea has subsided. Objective Labs 02/09/24 04:22 02/08/24 11:57 Labs: Laboratory Results - last 24 hr 02/08/24 02/09/24 15:30 04:22 WBC 6.7 RBC 3.75 L Hgb 10.8 L Hct 32.7 L MCV 87.2 MCH 28.9 MCHC 33.1 RDW 14.4 Plt Count 329 Neut % (Auto) 72.1 Lymph % (Auto) 19.0 L [place] % (Auto) 7.1 Eos % (Auto) 1.4 L Baso % (Auto) 0.4 Neut # (Auto) 4900 Lymph # (Auto) 1300 [place] # (Auto) 500 Eos # (Auto) 100 Baso # (Auto) 0 Nasal Screen MRSA (PCR) Not detected [facility] Surgical History History of cholecystectomy Social History household members: family Smoking Status: Never smoker alcohol intake: never Assessment & Plan Assessment & Plan narrative: Elevated Alkphos and pain could represent retained CBD stone waiting for repeat labs. Mid abdominal inflammation not related to bile leak, no abscess but symptoms better on antibiotics. Plan: continue observation with antibiotics, restart diet. Recheck labs, if labs and pain not back to baseline then MRCP. Time-Based Coding :: 30 minutes spent with patient and on the chart (including review of chart, obtaining history, exam, reviewing outside data, placing orders, documenting exam and treatment plan, and counseling patient) on 02/09/2024. .
[2024-02-09 14:08] LABS: Alanine Aminotransferase 36 IU/L (<35); Albumin 3.1 g/dL (3.5-5.0); Albumin Globulin Ratio 1.1 (1.0-2.8); Alkaline Phosphatase 237 U/L (38-126); Aspartate Aminotransferase 38 IU/L (14-36); BUN Creatinine Ratio 9.6 (6-22); Bilirubin Total 0.5 mg/dL (0.2-1.3); Blood Urea Nitrogen 5 mg/dL (7-17); Calcium 8.6 mg/dL (8.4-10.2); Carbon Dioxide 24 mmol/L (22-32); Chloride 108 mmol/L (98-107); Estimated Glomerular Filt Rate > 60 mL/min (>60); Globulin 2.7 g/dL (1.7-4.1); Glucose 130 mg/dL (70-100); HEMOLYSIS < 15 (0-50); Potassium 3.4 mmol/L (3.4-5.1); Sodium 139 mmol/L (137-145); Total Protein 5.8 g/dL (6.3-8.2)
[2024-02-09] MEDS: POTASSIUM CHLORIDE 20 MEQ TAB 40 MEQ PO (15:46)
[2024-02-10 06:00] VITALS: BP 108/58; PULSE 78; RESP 18; TEMP 36.4; O2SAT 97
[2024-02-10 07:47] LABS: Add Manual Diff / Slide Review NO; Basophils Absolute Auto 100 /uL (0-100); Basophils Percent Auto 1.9 % (0-2); Eosinophils Absolute Auto 100 /uL (0-450); Eosinophils Percent Auto 0.9 % (2-4); Hematocrit 35.2 % (36-46); Hemoglobin 11.6 g/dL (12.0-16.0); Lymphocytes Absolute Auto 1200 /uL (1100-4500); Lymphocytes Percent Auto 17.8 % (25-40); Mean Corpuscular HGB Conc 33.1 % (30-36); Mean Corpuscular Hemoglobin 28.7 PG (26-34); Mean Corpuscular Volume 86.9 fL (80-100); Monocytes Absolute Auto 500 /uL (0-900); Monocytes Percent Auto 7.1 % (3-14); Neutrophils Absolute Auto 5000 /uL (1500-7000); Neutrophils Percent Auto 72.3 % (50-75); Platelet Count 371 X10^3/uL (150-400); Red Blood Cell Count 4.05 X10^6/uL (4.0-5.2); Red Cell Distribution Width 14.8 % (11.6-14.8); White Blood Cell Count 6.9 X10^3/uL (4.5-11.0)
[2024-02-10 07:50] VITALS: BP 105/65; PULSE 62; RESP 20; TEMP 36.4; O2SAT 97
[2024-02-10 07:57] LABS: Alanine Aminotransferase 42 IU/L (<35); Albumin 3.7 g/dL (3.5-5.0); Albumin Globulin Ratio 1.1 (1.0-2.8); Alkaline Phosphatase 297 U/L (38-126); Aspartate Aminotransferase 37 IU/L (14-36); Bilirubin Total 0.5 mg/dL (0.2-1.3); Blood Urea Nitrogen 7 mg/dL (7-17); Calcium 9.1 mg/dL (8.4-10.2); Carbon Dioxide 24 mmol/L (22-32); Chloride 108 mmol/L (98-107); Estimated Glomerular Filt Rate > 60 mL/min (>60); Globulin 3.3 g/dL (1.7-4.1); Glucose 98 mg/dL (70-100); HEMOLYSIS < 15 (0-50); Sodium 139 mmol/L (137-145)
[2024-02-10] MEDS: PANTOPRAZOLE DR 40 MG TABLET PO (08:07)
[2024-02-10] MEDS: SODIUM CHLORIDE 0.9% FLUSH 10 ML IV (08:07)
[2024-02-10] MEDS: ACETAMINOPHEN 325 MG TABLET 650 MG PO ×2 (08:09→15:35)
--- NOTE | 2024-02-10 11:59 | PM.DS.1 ---
History of Present Illness History of Present Illness Date Patient Seen: 02/10/24 Time Patient Seen: 11:59 Chief complaint: increase pain after surgery, sent by [facility] Narrative: abdominal pain with tenderness to touch (generalized). No fever, language barrier with [place] speaking. +Nausea, +vomiting and anorexia for 3 days. Alkphos is elevated, mild leukocytosis. CT scan i reviewed personally and agree there is fluid vs inflammation in the area of the jejunum, possible related to previous fluid collection wash out. Discharge Providers Provider Date of admission: 02/08/24 13:07 Discharge Date: 02/10/24 Primary care physician: Doctor Tomi MD Discharge provider: Mechelle Light MD Summary Hospital Course Discharge Diagnosis: Post op pain from residual inflammation. No infection, no biliary obstruction, no bile leak. Very low posibility of a retained common bile duct stone, if there is one it should or has passed. Hospital Course: Work up of CT abd, HIDA, repeat labs and pain control Status at Discharge Cognitive/behavioral status at discharge: at baseline, oriented Functional status at discharge: independent ambulation Overall status at discharge: patient is progressing back to baseline Time Spent with Patient Time spent: Greater than 30 minutes Exam Vital Signs (past 8 hours): - 02/10/24 06:00 02/10/24 07:50 Temperature 97.6 F 97.6 F Pulse Rate 78 62 Respiratory Rate 18 20 Blood Pressure 108/58 L 105/65 Pulse Oximetry 97 97 Oxygen Flow Rate 0 0 Oxygen Delivery Method Room Air Oxygen Flow Rate 0 Narrative Exam Narrative: abdomen soft and benign. Residual tenderness to palpation mid abdomen Objective Labs 02/10/24 07:40 02/10/24 07:40 Labs: Laboratory Results - last 24 hr 02/09/24 02/10/24 13:30 07:40 WBC 6.9 RBC 4.05 Hgb 11.6 L Hct 35.2 L MCV 86.9 MCH 28.7 MCHC 33.1 RDW 14.8 Plt Count 371 Neut % (Auto) 72.3 Lymph % (Auto) 17.8 L [place] % (Auto) 7.1 Eos % (Auto) 0.9 L Baso % (Auto) 1.9 Neut # (Auto) 5000 Lymph # (Auto) 1200 [place] # (Auto) 500 Eos # (Auto) 100 Baso # (Auto) 100 Sodium 139 139 Potassium 3.4 4.0 Chloride 108 H 108 H Carbon Dioxide 24 24 BUN 5 L 7 Creatinine 0.52 0.50 L Estimated GFR > 60 > 60 BUN/Creatinine Ratio 9.6 14.0 Glucose 130 H 98 Calcium 8.6 9.1 Total Bilirubin 0.5 0.5 AST 38 H 37 H ALT 36 H 42 H Alkaline Phosphatase 237 H 297 H Total Protein 5.8 L 7.0 Albumin 3.1 L 3.7 Globulin 2.7 3.3 Albumin/Globulin Ratio 1.1 1.1 PFSH Surgical History History of cholecystectomy Social History household members: family Smoking Status: Never smoker alcohol intake: never Discharge Assessment & Plan Assessment and Plan Assessment: No post op complication found, Pain is from residual inflammation in mid abdomen. Plan of Treatment: Home with pain meds, regular diet Discharge Plan Discharge Plan Patient Disposition: Home Discharge orders & Medications Prescriptions: New hydrocodone-acetaminophen 5-325 mg tablet 1 tab PO Q12H PRN (Reason: pain) Qty: 20 0RF ibuprofen 400 mg tablet 400 mg PO Q6H Qty: 90 0RF Continued pantoprazole 40 mg tablet,delayed release (DR/EC) 40 mg PO QAM Discontinued famotidine 40 mg tablet 40 mg PO ONCE PM PRN (Reason: heartburn) Follow up/Referrals: Doctor Krishna MD [Primary Care Provider] - Diet/Activity/Treatments Diet: Diet as Tolerated Activity: no restrictions Skin/Wound/Dressing Care Report to your healthcare provider any signs of infection, such as:: chills, fever and increased pain Visit Report/Discharge Packet Instructions: DI for Prescription Opioid Use Stand Alone Forms: Patient Portal/API Discharge Data Primary Care Provider: Doctor Tomi Attending Provider: Mechelle Light Admit Date/Time: 02/08/24 13:07
--- NOTE | 2024-02-10 13:48 | CM.DPC ---
DCP Cont. Reviewed EMR and team rounds for status updates. Pt has been medically cleared for home d/c. [facility] provided [employer] info for the RN to call once she's ready to transport her back to the [facility]. No further d/c needs identified at this time.
--- NOTE | 2024-02-10 15:25 | PC.NURSE ---
Patient was flown in from [place] prior to admission, trin[place] speaking. Does not have any family or friends available in [place] to help with discharge. Transportation arranged to [facility] with [employer]. Patient states a coworker will meet her at the [place] for a ride home. Dr Light changed pharmacy from [facility] to [facility] per patient request and complications with [employer].
--- NOTE | 2024-02-14 17:29 | PC.NURSE ---
Late Entry: Piperacillin infusion initiated 02/07 at 1241 complete at 1312.
== END 2024-02-10 16:15 | disposition home or self-care (01) ==
LOC: ED 10:58 → AC 13:08 → ICU 13:16
PROVIDERS: Admitting Provider Surgery; Emergency Provider Emergency Medicine; Referring Provider Emergency Medicine; Visit Provider Surgery
DX: R10.9 Unspecified abdominal pain (principal); Z90.49 Acquired absence of other specified parts of digestive tract; R11.2 Nausea with vomiting, unspecified; R19.7 Diarrhea, unspecified
CPT/HCPCS: 36415; 74177; 78226; 80053; 83605; 83690; 85025; 87040; 87797; 96361; 96365; 96375; 96376; 99222; 99232; 99238; 99284; A9537; G0378; J1170; J2405; J2470; J2543; Q9967